=== PATIENT | male | born 1945 | race Caucasian/White ===

== ENCOUNTER 2019-10-11 07:08 | Day surgery (SDC) | payer MEDICARE, SELFPAY ==
[2019-10-10 10:19] VITALS: BMI 24.3
--- NOTE | 2019-10-11 05:50 | PM.OPSURHP ---
Providers/Chief Complaint Primary Care Provider: Judson Koehler MD Chief Complaint: M67.479 M20.21 History of Present Illness Munir Salcedo is a 74 year old male presenting with right foot pain. He endorses an arthritic joint that is stiff and painful when walking on his right great toe he also developed a soft tissue mass in July 2019 on the right foot consistent with ganglion cyst. States that that area is painful when standing, walking and wearing shoes and would like to have the soft tissue mass removed, he is also requesting a surgical solution for the arthritic changes at his right great toe. Patient takes [id number] NSAIDs and has decreased activity. He describes the nature of the pain is sharp stabbing as well as deep and arthritic in nature. Primary care provider: Dr. Koehler [place] [facility] [place] Systems Const: Denies: fever, chills or body aches Eyes: Denies: change in vision ENMT: Denies: throat pain Card: Denies: chest pain or palpitations Resp: Denies: shortness of breath GI: Denies: abdominal pain : Denies: flank pain Musc: Reports: extremity pain, joint swelling, joint stiffness and limited range of motion Skin/Breast: Denies: itching or redness Neuro: Reports: difficulty walking Psych: Denies: anxiety or depression Endo: Denies: excessive urination Michael/Lymph: Denies: easy bruising Medications/Allergies Home Medications Medication Instructions Recorded Confirmed Last Taken Type aspirin [Aspirin Low Dose] 81 mg PO DAILY 10/11/19 10/11/19 Unknown History terazosin 1 mg PO DAILY 10/11/19 10/11/19 Unknown History tizanidine mg 10/11/19 10/11/19 Unknown History Allergies Allergy/AdvReac Type Severity Reaction Status Date / Time No Known Allergies Allergy Unverified 10/02/19 07:34 PFSH PFSH: Statuses (acute, chronic, etc) shown below reflect problem list status as previously entered and may not be historically accurate Medical History (Updated 10/11/19 @ 05:59 by Valdez Kumar DPM) Heart murmur (Acute) Rupture of left biceps tendon (Acute) Surgical History (Updated 10/11/19 @ 06:02 by Valdez Kumar DPM) H/O hernia repair (Acute) H/O unilateral orchiectomy (Acute) History of colon resection (Acute) S/p reverse total shoulder arthroplasty (Acute) Social History (Updated 10/11/19 @ 06:00 by Valdez Kumar DPM) Smoking and tobacco status: never smoked Alcohol intake: current Alcohol intake frequency: holidays/special occasions only Substance/Drug Use: never Marital status: Current occupational status: employed Current occupation: Part-time employment Vital Signs Weight: Weight last 48 hrs Weight 170 lb Physical Exam Narrative: EXAM NARRATIVE: Patient is in no acute distress, conversant. PSYCH: Patient is alert and oriented to person, place and time. HEENT: PERRL. Clear sclera. No rhinitis. Moist mucous membranes of oral cavity. CARDIOVASCULAR: S1, S2, normal rhythm, did not appreciate S3 or S4 heart sounds. Dorsalis pedis and posterior tibial arteries palpable +2. Capillary refill time less than 3 seconds to the distal hallux bilaterally. Calf is supple and nontender proximally and distally. No pedal edema appreciated. Pedal hair growth present. LUNGS: Clear to auscltation, no use of acessory muscles, no crackles or wheezes. LYMPHATIC: No lymphadenopathy. NEUROLOGICAL: Epicritic and protopathic sensations grossly intact to the lower extremities. +2 Achilles tendon reflex noted bilaterally. Negative Tinel sign upon percussion of lower extremity nerves. DERMATOLOGICAL: Lower extremity skin is well-hydrated, normal texture and turgor. There are no open sores or lesions noted to the lower extremities. No erythema or ecchymosis present to the bilateral legs and feet. Dystrophic right great toenail with significant thickening, discoloration and subungual debris present. MUSCULOSKELETAL: Soft tissue mass at the dorsal right first metatarsal head measures 2.5 cm x 2.5 cm x 1.5 cm transilluminates is fluid-filled. Decreased range of motion at right first metatarsal phalangeal joint, 20 degrees of dorsiflexion appreciated, 15 degrees of plantarflexion with crepitus. Palpable osseous prominence at the dorsal and medial aspect of the right first metatarsal head. Tenderness with range of motion of right first metatarsal head. Muscle strength is 5 out of 5 in all 3 cardinal planes. Ankle joint dorsiflexion 5 degrees beyond neutral bilaterally. There is a mild hallux valgus deformity noted bilaterally. Hammertoe deformities 2 through 5 bilaterally. Pes planus foot type noted bilaterally. Patient does not have pain to palpation at the digital deformities at this time his only area of pain and concern is his right first metatarsal phalangeal joint and soft tissue mass. A&P Assessment and plan (1) Ganglion cyst of right foot: Status: Acute Code(s): M67.471 - Ganglion, right ankle and foot (2) Hallux rigidus, right foot: Status: Acute Code(s): M20.21 - Hallux rigidus, right foot Patient examined and evaluated, findings and treatment options discussed with patient at length. Patient does not have pain at the other pedal deformities noted in physical exam. Primary focus of the visit was his ganglionic cyst and hallux rigidus right foot. Discussed radiographic findings of joint space narrowing, subchondral sclerosis, widening of first metatarsal head and phalanx base as well as significant enthesophytes at the dorsal right first metatarsal head with clinical decreased range of motion and tenderness. Recommended excision of ganglion cyst along with cheilectomy right first metatarsal phalangeal joint. Risks include pain, bleeding, numbness, infection, failure to alleviate pain, bruising, swelling, recurrence of soft tissue mass and recurrence of osseous prominence. Also need for further surgical intervention. He wishes to proceed. He will get an updated H&P with his primary care provider and wishes to proceed October 11, 2019 will be outpatient under MAC anesthesia. Coding Level of Care Code Acute Manager Administrative for hSer Paz Diagnoses Ganglion cyst of right foot M67.471 Hallux rigidus, right foot M20.21
[2019-10-11 07:30] VITALS: BP 126/68; PULSE 77; RESP 18; TEMP 36.8; O2SAT 95
[2019-10-11] MEDS: sodium chloride 0.9% 1,000 ML 30 ML IV (07:50)
--- NOTE | 2019-10-11 08:01 | ANES.PREANES ---
Pre-Anesthetic Assessment Pre-Anesthetic Assessment: Height/Weight: Height 1.78 m Weight 77.111 kg Temp Pulse Resp BP Pulse Ox 98.3 F 77 18 126/68 95 10/11/19 07:30 10/11/19 07:30 10/11/19 07:30 10/11/19 07:30 10/11/19 07:30 Preop Diagnosis: Hallux rigidus right foot. Ganglion cyst right foot. Proposed Procedure: Operation Date: 10/11/19 08:50 Proposed Procedures p 28659 Ganglion cyst excision right foot 43936 cheilectomy right foot M67.479 M20.21(Right) - Valdez Kumar DPM s Cheilectomy(Right) - Valdez Kumar DPM Last intake: Intake Last Liquid Date 10/10/19 Last Liquid Time 22:00 Last Solid Date 10/10/19 Last Solid Time 19:00 Social: Social History: Alcohol (occ) and No tobacco Exam: Pre-Anes Outpt Exam: alert, oriented x 3, clear to auscultation bilaterally and regular rate & rhythm Airway: Submandibular: WNL Cervical ROM: WNL MP: 2 Dentition: Full History/ROS: No significant history except as noted Pulmonary: Pulmonary: None reported CV/HEM: CV/HEM: None reported : : None reported Hepatic: Hepatic: None reported GI: GI: None reported Metabolic: Metabolic: None reported Musc/skel: Musc/skel: OA/DJD Neuropsych: Neuropsych: None reported Anesthetic Plan: ASA status: II Anesthesia: Anesthesia Evaluation and MAC Risk of > 500 ml blood loss (7ml/kg in children): No Meds/Allergies Current Medications: Current Medications Generic Name Dose Route Start Last Admin Trade Name Freq PRN Reason Stop Dose Admin Sodium Chloride 1,000 mls @ 30 ml s/hr 10/11/19 07:30 10/11/19 07:50 Sodium Chloride 0.9% IV 10/12/19 07:29 30 mls/hr .Q24H NATY Administration PFSH Anesthesia PFSH: Medical History Heart murmur (Acute) Rupture of left biceps tendon (Acute) Surgical History H/O hernia repair (Acute) H/O unilateral orchiectomy (Acute) History of colon resection (Acute) S/p reverse total shoulder arthroplasty (Acute) Social History Smoking and tobacco status: never smoked Alcohol intake: current Alcohol intake frequency: holidays/special occasions only Marital status: Current occupational status: employed Current occupation: Part-time employment Data Anesthesia Cardiac Studies: No Data to Display
[2019-10-11 09:46] VITALS: BP 126/70; PULSE 60; RESP 16; TEMP 36.3; O2SAT 96
[2019-10-11 10:05] VITALS: BP 122/64; PULSE 56; RESP 18; O2SAT 94
--- NOTE | 2019-10-11 10:08 | PM.OP ---
Operative Report Date of procedure: 10/11/19 Pre-op Diagnosis: Hallux rigidus right foot. Ganglion cyst right foot. Post-op diagnosis: same Post-op Findings: Soft tissue mass gelatinous fluid filled with viscous fluid consistent with ganglion cyst right foot. Bony hypertrophy and loose chondral bodies at right first metatarsal phalangeal joint with decreased range of motion consistent with hallux rigidus. Procedure Done: 1. Cheilectomy right first metatarsal phalangeal joint. 2. Excision of soft tissue mass consistent with ganglion cyst right foot Implants: No implants Specimens removed/disposition: Soft tissue mass right foot sent to pathology for review. Pathology: other Pathology: Soft tissue mass consistent with ganglion cyst right foot sent to pathology Surgeon: Valdez Kumar D.P.M. [employer] Operator: Jennifer Anesthesia: MAC and Local (Operative [place] block right foot consisting of 30 cc of 0.5's Marcaine plain. Postoperatively Exparel 20 cc per oracle fusion middleware developer recommendation at perioperative site infiltrated throughout subcutaneous tissue.) Estimated blood loss: 2 mL Tourniquet time: 30 minutes IV fluids: None Urine output: None Complications: No complications Findings: Soft tissue mass consistent with ganglion cyst right foot. Hallux rigidus right foot Condition: stable Disposition: PACU Brief History: Patient is a pleasant 74-year-old male with a soft tissue mass causing pain and irritation when standing as well as when wearing shoes. Soft tissue mass is located at his right foot dorsal aspect of first metatarsal phalangeal joint is consistently getting larger. He would like to have it removed. Also has hallux rigidus with joint space narrowing widening and subchondral sclerosis with loose bodies at right first metatarsal phalangeal joint. Recommended cheilectomy and excision of ganglion cyst with risks including but not limited to pain, bleeding, numbness, infection, bruising, swelling, surgical site dehiscence, recurrence of enthesophytes and chondral bodies, recurrence of ganglion cyst and need for further surgical intervention. Procedure: Under mild sedation the patient was brought to the operating room and placed on the operating table in supine position. A timeout was performed. Anesthesia was then administered by the anesthesia service. Local anesthesia was injected by myself as above. A well-padded pneumatic tourniquet was applied to the right ankle. Right lower extremity was then scrubbed, prepped and draped utilizing normal aseptic technique. Right foot was then examined a weighted with an Esmarch bandage and a tourniquet was inflated to 250 mmHg. Attention was directed to the dorsal medial aspect of the right first metatarsal phalangeal joint where a #15 blade was utilized to perform a linear longitudinal incision medial and parallel to the extensor hallucis longus tendon. Incision was performed through skin and dissection carried down through subcutaneous tissue utilizing a combination of blunt and sharp technique. Care was taken to retract and preserve neurovascular tendinous structures. Bleeders were ligated and cauterized as necessary. Soft tissue mass was encountered this was gelatinous fluid-filled and well encapsulated without integration to surrounding neurovascular structures it was adhered to the extensor hallucis longus tendon this was sharply and bluntly dissected out through tissue planes keeping the mass intact and excised in total identifying the stalk at the dorsal medial aspect of the extensor hallucis longus tendon proximal to the first metatarsal phalangeal joint. Soft tissue mass was sent to pathology for review. Stalk was identified and constricted with a Vicryl hand type. Incision site was flushed with saline solution and no remaining abnormal tissue or mass appreciated. At this time a new 15 blade was utilized to perform a periosteal and capsular incision this was linear nature over the first metatarsal phalangeal joint dorsal medial aspect and the head of the first metatarsal and base of the proximal phalanx were freed from the soft tissue attachments. Excessive bony hypertrophy and loose chondral bodies were appreciated these were sharply debrided sagittal saw was utilized to resect the dorsum and hypertrophied overgrowth at the head of the first metatarsal as well as medial eminence a rondure was utilized to recontour the base of the phalanx which had a dorsal flare from bossing. All anatomy to the first metatarsal head and base of the proximal phalanx was restored to normal contour no remaining osseous bodies or loose chondral fights were appreciated. Incision site was flushed with copious amounts of sterile saline solution. Capsular periosteal structures closed with 3-0 Vicryl. Subcutaneous tissue closed with 4-0 Vicryl. Skin closed with 4-0 nylon. Incision site was dressed with Adaptic, sterile 4 x 4's, Kerlix and Marshall wrap. Postop shoe was applied. Tourniquet was deflated and a prompt hyperemic response was noted to the distal digits of the right foot. Patient tolerated the procedure well and was transferred to the PACU with vital signs stable and vascular status intact. Following a period of postoperative monitoring he will be discharged home. He is provided my cell phone number and postoperative instructions and discharge paperwork is to contact me with any postoperative questions or concerns.
== END 2019-10-11 10:30 | disposition home or self-care (01) ==
PROVIDERS: Family Provider Family Medicine; PCP Family Medicine; Visit Provider Podiatrist Foot & Ankle Surgery
PROC: (CPT 28090; principal; 2019-10-11 08:50)
PROC: (CPT 28289; 2019-10-11 08:50)
DX: M20.21 Hallux rigidus, right foot (principal); M67.471 Ganglion, right ankle and foot; M19.90 Unspecified osteoarthritis, unspecified site; Z79.82 Long term (current) use of aspirin; G47.33 Obstructive sleep apnea (adult) (pediatric)
CPT/HCPCS: 28090; 28289; 12345; 88307; 88309; 96365; C9290; J0690; J2704; J3010; J3490; J7030

== ENCOUNTER → 2019-12-23 10:45 | Outpatient (BNVA) | payer MEDICARE, SELFPAY | PROVIDERS: Family Provider Family Medicine; PCP Family Medicine; Visit Provider Specialist | DX: Z98.890 Other specified postprocedural states (principal); Z96.611 Presence of right artificial shoulder joint | CPT/HCPCS: 73030 ==

== ENCOUNTER 2020-07-05 18:08 | Emergency (ER) | payer MEDICARE, MEDICAID, SELFPAY ==
[2020-07-05 18:13] VITALS: BP 112/67; PULSE 90; RESP 18; TEMP 36.7; O2SAT 93; BMI 25.0
--- NOTE | 2020-07-05 18:26 | XRR_ITS ---
PROCEDURE INFORMATION: Exam: XR Chest, 1 View Exam date and time: 07/05/2020 6:27 PM Age: 75 years old Clinical indication: Cough and fever TECHNIQUE: Imaging protocol: XR of the chest Views: 1 view. COMPARISON: No relevant prior studies available. FINDINGS: Lungs: Patchy airspace disease in the left lower lobe suspicious for mild pneumonia. Pleural space: No pleural effusion. No pneumothorax. Heart/Mediastinum: The cardiac silhouette and mediastinal contours are unremarkable. Bones/joints: Patient has had a previous right reverse shoulder arthroplasty. Moderate degenerative changes at the left shoulder. Patient has had a previous left rotator cuff repair. Multilevel degenerative changes of varying severity in the visualized spine. Bones are diffusely osteopenic. XR/XR chest 1V portable [id number] IMPRESSION: 1. Patchy airspace disease in the left lower lobe suspicious for mild pneumonia. Recommend followup chest x-ray to ensure resolution. 2. Incidental/nonacute findings are listed in the report.
--- NOTE | 2020-07-05 18:29 | ED_ITS ---
HPI - SOB/Dyspnea General: Chief Complaint: Shortness of Breath/Dyspnea Stated Complaint: referral from [facility] Time Seen by Provider: 07/05/20 18:22 Source: patient Mode of arrival: ambulatory Limitations: no limitations History of Present Illness: HPI Narrative: 75-year-old male states been having cough congestion fever over the last 4 to 5 days. Patient states that he had a Covid swab on Monday but has not gotten the results back yet. He states that his cough worsened today. Patient here is in no distress mom in the room and has a pulse ox of 96% on room air. He had no vomiting or diarrhea. He denies any chest pain. Denies any worsening or improving factors. Associated symptoms: Deny abdominal pain, chest pain, fever(s), nausea or vomiting Review of Systems Const: Denies: fever(s), chills, body aches or change in appetite Eyes: Denies: blurry vision or eye discomfort ENMT: Denies: throat pain or dental pain Card: Denies: chest pain Resp: Reports: dyspnea and non-productive cough GI: Denies: abdominal pain, nausea, vomiting or diarrhea : Denies: dysuria Musc: Denies: neck pain or back pain Skin/Breast: Denies: rash Neuro: Denies: headache(s) Psych: Denies: depression Michael/Lymph: Denies: easy bruising All/Imm: Denies: urticaria PFSH ED PFSH: Medical History Heart murmur Hernia of testicle Rotator cuff arthropathy of right shoulder Rupture of left biceps tendon Surgical History H/O hernia repair H/O unilateral orchiectomy History of colon resection S/p reverse total shoulder arthroplasty Family History Denies family history of Diabetes CAD (coronary artery disease) Clotting disorder Dementia Hyperlipidemia Psychiatric illness Chronic kidney disease (CKD) Suicide Anesthesia complication Bleeding disorder Family history of premature coronary artery disease Lung disease Cancer Hypertension Stroke Social History Smoking and tobacco status: never smoked Alcohol intake: current Alcohol intake frequency: holidays/special occasions only Marital status: Current occupational status: employed Current occupation: Part-time employment Physical Exam Const: COMMON NORMALS: no acute distress, patient oriented x3 and healthy appearing HENMT: COMMON NORMALS: normocephalic and atraumatic HEAD & SCALP: normocephalic and atraumatic Eye: COMMON NORMALS: Equal, round and reactive pupils present and EOMs intact bilaterally PUPIL: Yes Equal, round and reactive pupils present Neck/C-Spine: COMMON NORMALS: full ROM and supple Chest: COMMONS NORMALS: normal inspection of the chest and normal palpation of entire chest wall Resp: COMMON NORMALS: normal respiratory effort, No retractions, No use of accessory muscles and clear to auscultation bilaterally AUSCULTATION: clear to auscultation bilaterally Cardio: COMMON NORMALS: regular rate, regular rhythm and No murmurs present (Cardio) RATE: regular rate RHYTHM: regular rhythm GI: COMMON NORMALS: Normal to inspection, nondistended, normoactive bowel sounds present, Soft to palpation, non-tender and no masses PALPATION: Yes Soft to palpation Extremity: COMMON NORMALS: normal to inspection and full ROM Neuro: COMMON NORMALS: patient oriented x3, moves all extremities and no focal motor deficits Psych: COMMON NORMALS: mental status grossly normal, Normal thought process present and cooperative THOUGHT PROCESS: Normal thought process present Skin: COMMON NORMALS: no rashes or lesions noted and no wounds GENERAL SKIN EXAM: no rashes or lesions noted Course Vital Signs: Vital signs: Vital Signs Temperature 98.1 F 07/05/20 18:13 Pulse Rate 90 07/05/20 18:13 Respiratory Rate 18 07/05/20 18:13 Blood Pressure 112/67 07/05/20 18:13 Pulse Oximetry 93 07/05/20 18:13 MDM - SOB/Dyspnea MDM Narrative: Medical decision making narrative: Patient presents here with cough congestion and suspected Covid. Patient still pending his previous swab. He is well-appearing here and in no distress and pulse ox is been 93 to 95% on room air. X-ray shows no pneumonia. We will give him Decadron along with albuterol for home. He is to follow-up with his PCP in 3 to 5 days and return if worsening. Imaging Data^: CXR: My impression: No acute abnormality Discharge Plan Discharge Patient Disposition: Home Clinical Impression: Suspected 2019-nCoV infection Condition: Stable Prescriptions: New albuterol sulfate 90 mcg/actuation HFA aerosol inhaler 2 inh INHALATION Q6H PRN (Reason: shortness of breath or wheezing) Qty: 8 RF: 0 No Action tizanidine 2 mg tablet 2 mg PO DAILY RF: 0 terazosin 1 mg Capsule 1 mg PO DAILY RF: 0 aspirin [Aspirin Low Dose] 81 mg Tablet,Delayed Release (Dr/Ec) 81 mg PO DAILY RF: 0 Discharge Orders: Discharge Order (Routine); Ordered 07/05/20 Ordered By: Sylvester Navarro Referrals: Judson Koehler MD [Primary Care Provider] - 1-3 days Discharge Diet: Advance as tolerated Discharge Activity: Resume usual activity Patient Instructions: Upper Respiratory Infection (ED) Coding Level of Care Code ED Soaker Helper for Eseg Fwd Exam Comprehensive
[2020-07-05] MEDS: dexamethasone 10 mg/mL INJ IM (18:45)
[2020-07-05 18:49] VITALS: BP 109/67; PULSE 68; RESP 17; O2SAT 92
[2020-07-05 19:00] VITALS: PULSE 100; RESP 20; O2SAT 92
[2020-07-05] MEDS: albuterol 8 gm MDI 2 PUFF INHALATION (19:00)
[2020-07-05 19:38] VITALS: BP 123/61; PULSE 86; RESP 16; TEMP 36.7; O2SAT 93
--- NOTE | 2020-07-07 08:40 | DCPLANNER ---
manager talent management was asked to schedule a telehealth visit or a phone visit for patient with primary care physician, Dr. Koehler. manager talent management called [facility], spoke with Dr. Teresa nurse, was told that patients information would be reviewed with Dr. Koehler, nurse would call patient and check on patient and see how he is feeling. manager talent management was told that depending on how patient is feeling will have Dr. Koehler do a tele health or a phone visit with patient today. Patient does have a in office visit scheduled for later this week.
== END 2020-07-05 19:38 | disposition home or self-care (01) ==
PROVIDERS: Emergency Provider Emergency Medicine; PCP Family Medicine
DX: Z20.828 Contact with and (suspected) exposure to other viral communicable diseases (principal); Z79.82 Long term (current) use of aspirin
CPT/HCPCS: 12345; 71045; 94640; 96372; 99283; J1100; J3535

== ENCOUNTER 2020-07-10 08:38 | Inpatient (IN) | payer MEDICARE, MEDICAID, SELFPAY ==
[2020-07-10] VITALS (15 sets, daily range): BP systolic 86–134; BP diastolic 49–78; PULSE 60–92; RESP 14–22; TEMP 36.4–37.8; O2SAT 91–97; BMI 24.3
--- NOTE | 2020-07-10 08:47 | XR_ITS ---
WS: [id number] Portable AP upright chest, 07/10/2020 Clinical Data: Cough Comparison: Portable chest, 07/05/2020. Findings: The patient has developed dense opacity throughout the left lung and moderate opacity in th e right upper lobe. The heart is slightly enlarged. No nodules or masses are seen. There are no effus ions. The patient has had a right shoulder arthroplasty. Monitor leads are on the chest wall. XR/XR chest 1V portable [id number] Impression: 1. Development of dense opacities in the left lung and right upper lobe consist ent with worsening pneumonia. 2. Cardiomegaly.
--- NOTE | 2020-07-10 08:47 | ECG_ITS ---
[facility] Test Date: 2020-07-10 Pat Name: Munir Salcedo Department: Room: Gender: Male Diversity Specialist: : [id number] Requested By: Maye Damian Order Number: [id number] Vance MD: Jory Damon M.D. Measurements Intervals [place] Rate: 85 P: 48 LA: 133 QRS: 69 QRSD: 106 T: 26 QT: 350 QTc: 417 Interpretive Statements SINUS RHYTHM WITH OCCASIONAL VENTRICULAR PREMATURE COMPLEXES VOLTAGE CRITERIA FOR LVH [MEETS CRITERIA IN ONE OF: R(aVL), S(V1), R(V5), R(V5/V6)+S(V1)] NONSPECIFIC ST & T-WAVE ABNORMALITY Compared to ECG 06/22/2018 08:32:39 Ventricular premature complex(es) now present Left ventricular hypertrophy now present T-wave abnormality now present Sinus bradycardia no longer present Electronically Signed On 07-10-2020 20:29:25 CDT by Jory Damon M.D. [email or web address]
--- NOTE | 2020-07-10 08:49 | ED_ITS ---
HPI - General Adult General: Chief complaint: COVID symptoms Stated complaint: COVID POSITIVE/ WEAK/ COUGH Time Seen by Provider: 07/10/20 08:39 Source: patient and EMS Mode of arrival: EMS Limitations: no limitations History of Present Illness: HPI narrative: Mr. Salcedo is a 75-year-old male comes in complaining of progressive worsening of his weakness and generalized fatigue and malaise. Patient has had the COVID-19 virus and is been sick with it for almost a week and a half. Not aware of any fevers. States his predominant symptom is that of just continued diarrhea, generalized weakness and fatigue. Patient states he has been released by the health department but he continues to feel weak and tired because of this he comes into the hospital for evaluation. He denies any immunosuppressive medications or significant generalized health problems. He states any type of exertion or activity makes his symptoms worse and rest seems to make them better. Associated symptoms: Reports dyspnea and malaise; Deny chest pain, confusion, diaphoresis, headache(s), rash, palpitations, syn cope or vomiting Review of Systems Const: Reports: fever(s), chills, body aches, fatigue and malaise; Denies: diaphoresis Eyes: Denies: change in vision, blurry vision, photophobia, eye discomfort, eye discharge, eye redness or yellow eyes ENMT: Denies: throat pain, odynophagia, hoarseness, swelling of lips/tongue, ear or mastoid pain, ear discharge, change in hearing or nasal discharge Card: Denies: chest pain, palpitations, irregular heart rhythm, edema, lightheadedness, syncope, pre-syncope, dyspnea on exertion or orthopnea Resp: Reports: dyspnea and non-productive cough; Denies: productive cough, wheezing, hemoptysis or chest congestion GI: Reports: diarrhea; Denies: abdominal pain, vomiting, hematemesis, coffee ground emesis, heartburn, constipation, GI cramping, hematochezia or melena : Denies: flank pain, dysuria, urinary frequency, urinary urgency or hematuria Musc: Denies: neck pain, back pain, extremity pain, extremity swelling, joint pain, joint swelling, joint redness, joint warmth or joint stiffness Skin/Breast: Denies: rash, pruritus, erythema, skin pain or skin tenderness Neuro: Denies: headache(s), numbness in extremities, weakness in extremities, sensory changes, lack of coordination, difficulty walking, dizziness, vertigo, confusion, Slurred speech present or seizure-like activity Michael/Lymph: Denies: easy bruising, easy bleeding, petechiae, purpura or enlarged lymph nodes All/Imm: Denies: urticaria, throat swelling, tongue swelling, facial swelling or acute wheezing PFSH ED PFSH: Medical History Heart murmur Hernia of testicle Rotator cuff arthropathy of right shoulder Rupture of left biceps tendon Surgical History H/O hernia repair H/O unilateral orchiectomy History of colon resection S/p reverse total shoulder arthroplasty Family History Denies family history of Diabetes CAD (coronary artery disease) Clotting disorder Dementia Hyperlipidemia Psychiatric illness Chronic kidney disease (CKD) Suicide Anesthesia complication Bleeding disorder Family history of premature coronary artery disease Lung disease Cancer Hypertension Stroke Social History Smoking and tobacco status: never smoked Alcohol intake: current Alcohol intake frequency: holidays/special occasions only Marital status: Current occupational status: employed Current occupation: Part-time employment Physical Exam Const: COMMON NORMALS: no acute distress, patient oriented x3, no limitations and alert GENERAL APPEARANCE: cooperative HENMT: COMMON NORMALS: normocephalic, atraumatic, external ears normal, EAC's normal and Normal external nose present HEAD & SCALP: normal to inspection, normocephalic and atraumatic FACE & SINUS: normal facial exam and face symmetric NOSE: Normal external nose present and Normal nares present EXTERNAL EAR: Yes external ears normal EXTERNAL AUDITORY CANAL: EAC's normal MOUTH: Normal oral and palatal mucosa present, lip normal and tongue normal Eye: COMMON NORMALS: Equal, round and reactive pupils present and conjunctivae normal GENERAL EYE: appearance normal, both eyes and all related structures ALIGNMENT: Yes alignment normal PERIORBITAL: periorbital findings normal EYELID: eyelids normal CONJUNCTIVA: Yes conjunctivae normal SCLERA: sclerae normal PUPIL: Yes Equal, round and reactive pupils present Neck/C-Spine: COMMON NORMALS: full ROM, no lymphadenopathy, supple, no meningeal signs and no JVD GENERAL: Yes normal visual inspection and Yes trachea midline Chest: COMMONS NORMALS: normal inspection of the chest and normal palpation of entire chest wall Resp: COMMON NORMALS: normal respiratory effort, No retractions and No use of accessory muscles EFFORT & INSPECTION: Yes able to speak in complete sentences and Yes symmetric chest movement AUSCULTATION: rales, rhonchi and no wheezes Cardio: COMMON NORMALS: no JVD, regular rate, regular rhythm, S1 normal heart sound present and S2 normal heart sound present RATE: regular rate RHYTHM: regular rhythm HEART SOUNDS: S1 normal heart sound present, S2 normal heart sound present, no click, no gallops, no murmurs and no rubs GI: COMMON NORMALS: Soft to palpation and No hepatosplenomegaly present PALPATION: Yes Soft to palpation, No Tenderness to palpation present (GI), No Guarding due to palpation present (GI), No Rigid due to palpation, Yes No hepatosplenomegaly present, No Hernia present, No Palpable mass present and No Pulsatile mass present : COMMON NORMALS: Yes no CVA tenderness BLADDER/KIDNEY EXAM: Yes no CVA tenderness Back/Pelvis: COMMON NORMALS: no CVA tenderness, thoracic and lumbar spine normal to inspection, no thoracic nor lumbar tenderness and thoraco-lumbar ROM normal Extremity: COMMON NORMALS: normal to inspection, full ROM, capillary refill normal, no joint enlargement, no clubbing, cyanosis or edema and no calf tenderness Neuro: COMMON NORMALS: patient oriented x3, CN's II-XII intact bilaterally, moves all extremities, no focal motor deficits and no sensory deficits noted SENSORIUM/ORIENTATION: Yes alert MENINGEAL SIGNS: Yes no meningeal signs SPEECH: speech normal Psych: COMMON NORMALS: mental status grossly normal, Normal thought process present, cooperative, normal affect, speech normal and activity/motor behavior normal SPEECH: Yes normal speech THOUGHT PROCESS: Normal thought process present Skin: COMMON NORMALS: no rashes or lesions noted, turgor normal, no jaundice, no petechiae and no mottling GENERAL SKIN EXAM: no rashes or lesions noted and turgor normal Course Vital Signs: Vital signs: Vital Signs Temperature 100.0 F H 07/10/20 09:56 Pulse Rate 73 07/10/20 11:59 Respiratory Rate 22 H 07/10/20 11:59 Blood Pressure 86/73 07/10/20 11:59 Pulse Oximetry 97 07/10/20 11:59 MDM - General Adult MDM Narrative: Medical decision making narrative: Case was reviewed with Dr. Koehler he agrees to meet the patient for viral pneumonitis, hypoxia dehydration. Lab Data: Attestation: I reviewed the patient's lab results. Labs: Lab Results 07/10/20 07/10/20 07/10/20 Range/Units 08:25 08:25 08:25 WBC 7.2 (4.0-10.0) 10^3/ uL RBC 4.74 (4.1-5.3) 10^6/u L Hgb 13.9 (11.7-16.6) g/dL Hct 41.4 L (42.0-52.0) % MCV 87.3 (80-94) fL MCH 29.3 (28.0-34.0) pg MCHC 33.6 (30.0-36.0) g/dL RDW 12.6 (12.1-15.1) % Plt Count 487 H (130-400) 10^3/c mm MPV 10.1 (7.4-10.4) fL Neut % (Auto) 83.6 % Lymph % (Auto) 9.6 % [place] % (Auto) 4.0 % Eos % (Auto) 2.1 % Baso % (Auto) 0.1 % Neut # (Auto) 6.04 (1.8-7.7) 10^3/u L Lymph # (Auto) 0.7 L (0.8-4.8) 10^3/u L [place] # (Auto) 0.3 (0.2-0.9) 10^3/u L Eos # (Auto) 0.2 (0.0-0.8) 10^3/u L Baso # (Auto) 0.0 (0.0-0.1) 10^3/u L Nucleated RBC % (a uto) 0 % Nucleated RBCs # 0.0 /100WBC PT 17.30 H (12.1-14.9) SECO NDS INR 1.37 H (0.8-1.2) Fibrinogen 1170 H (174-498) mg/dL D-Dimer 4.46 H (0-0.59) ug/mIFE U Specimen Type Sample Site ABG pH (7.35-7.45) ABG pCO2 (35-45) mmHg ABG pO2 (80.0-100.0) mmH g ABG HCO3 (22-26) mmol/L ABG Base Excess (-2.0-2.0) mmol/ L Rodriguez Test Hematocrit (42-52) % O2 Delivery Device FiO2 % Bottle Carrier ID Sodium 132 L (136-145) mmol/L Potassium 3.4 L (3.5-5.1) mmol/L Chloride 93 L (98-107) mmol/L Carbon Dioxide 25 (22-29) mmol/L Anion Gap 17.4 (5-19) BUN 23 (8-23) mg/dL Creatinine 0.8 (0.7-1.2) mg/dL GFR Calculation Not Reportable Glucose 131 H (65-115) mg/dL Calculated Osmolal ity 279 L (285-295) mOsm/k g Lactic Acid (0.5-2.2) mmol/L Calcium 8.6 (8.5-10.5) mg/dL Magnesium 2.9 H (1.7-2.3) mg/dL Total Bilirubin 1.3 H (0.15-1.2) mg/dL AST 45 H (0-40) U/L ALT 49 H (0-41) U/L Alkaline Phosphata se 78 (40-130) IU/L Lactate Dehydrogen ase 390 H (135-225) U/L Creatine Kinase 39 (39-308) U/L Troponin T Gen 5 n g/L (0-15) ng/L C-Reactive Protein 243.6 H (0.0-4.9) mg/L Total Protein 7.1 (6.6-8.7) g/dL Albumin 3.6 (3.5-5.2) g/dL Globulin 3.5 (1.3-4.6) g/dL Procalcitonin 1.05 H (0-0.5) ng/mL 07/10/20 07/10/20 07/10/20 Range/Units 08:25 08:25 09:00 WBC (4.0-10.0) 10^3/ uL RBC (4.1-5.3) 10^6/u L Hgb (11.7-16.6) g/dL Hct (42.0-52.0) % MCV (80-94) fL MCH (28.0-34.0) pg MCHC (30.0-36.0) g/dL RDW (12.1-15.1) % Plt Count (130-400) 10^3/c mm MPV (7.4-10.4) fL Neut % (Auto) % Lymph % (Auto) % [place] % (Auto) % Eos % (Auto) % Baso % (Auto) % Neut # (Auto) (1.8-7.7) 10^3/u L Lymph # (Auto) (0.8-4.8) 10^3/u L [place] # (Auto) (0.2-0.9) 10^3/u L Eos # (Auto) (0.0-0.8) 10^3/u L Baso # (Auto) (0.0-0.1) 10^3/u L Nucleated RBC % (a uto) % Nucleated RBCs # /100WBC PT (12.1-14.9) SECO NDS INR (0.8-1.2) Fibrinogen (174-498) mg/dL D-Dimer (0-0.59) ug/mIFE U Specimen Type Arterial Sample Site Radial, left ABG pH 7.49 H (7.35-7.45) ABG pCO2 32.5 L (35-45) mmHg ABG pO2 52.7 L (80.0-100.0) mmH g ABG HCO3 24.8 (22-26) mmol/L ABG Base Excess 1.9 (-2.0-2.0) mmol/ L Rodriguez Test Pos Hematocrit 39.3 L (42-52) % O2 Delivery Device Room air FiO2 21.0 % Bottle Carrier ID Ed Sodium (136-145) mmol/L Potassium (3.5-5.1) mmol/L Chloride (98-107) mmol/L Carbon Dioxide (22-29) mmol/L Anion Gap (5-19) BUN (8-23) mg/dL Creatinine (0.7-1.2) mg/dL GFR Calculation Glucose (65-115) mg/dL Calculated Osmolal ity (285-295) mOsm/k g Lactic Acid 1.3 (0.5-2.2) mmol/L Calcium (8.5-10.5) mg/dL Magnesium (1.7-2.3) mg/dL Total Bilirubin (0.15-1.2) mg/dL AST (0-40) U/L ALT (0-41) U/L Alkaline Phosphata se (40-130) IU/L Lactate Dehydrogen ase (135-225) U/L Creatine Kinase (39-308) U/L Troponin T Gen 5 n g/L 12 (0-15) ng/L C-Reactive Protein (0.0-4.9) mg/L Total Protein (6.6-8.7) g/dL Albumin (3.5-5.2) g/dL Globulin (1.3-4.6) g/dL Procalcitonin (0-0.5) ng/mL Imaging Data^: CXR: Attestation: I personally reviewed and interpreted this imaging study as follows: My impression: Viral pneumonitis with probable left upper lobe focal infiltrate Radiologist's impression: [place] [address] CT Scan Report Signed Patient: Ranjan Salcedo #: [id number] : 7Acct#:[id number] Age/Sex: 75 / MADM Date: 07/10/20 Loc: [facility]/Bed: Attending Dr: Ordering Provider/Ordering MD: Maye Phillips DO Date of Service: 07/10/20 Procedure(s): CT angio chest PE protcl [id number] Accession Number(s): [id number] Report Number: [id number] PROCEDURE INFORMATION: Exam: CT Angiography Chest With Contrast Exam date and time: 07/10/2020 10:50 AM Age: 75 years old Clinical indication: Cough and fever; Prior surgery; Surgery date: 6+ months; Surgery type: Shoulder; Patient HX: Covid+ w fever, weakness, cough, elev d-dimer; Additional info: Dyspnea, positive d-dimer TECHNIQUE: Imaging protocol: Computed tomographic angiography of the chest with intravenous contrast. 3D rendering (Not supervised by radiologist): MIP and/or 3D reconstructed images were created by the technologist. Radiation optimization: All CT scans at this facility use at least one of these dose optimization techniques: automated exposure control; mA and/or kV adjustment per patient size (includes targeted exams where dose is matched to clinical indication); or iterative reconstruction. Contrast material: OMNI 350; Contrast volume: 78 ml; Contrast route: INTRAVENOUS (IV); COMPARISON: CR XR chest 1V portable [id number] 07/10/2020 8:49 AM RADIATION DOSE METRICS: Total DLP (mGy-cm): 570.88 FINDINGS: Pulmonary arteries: Normal. No pulmonary emboli. Aorta: Unremarkable. No aortic aneurysm. No aortic dissection. Lungs: Extensive bilateral interstitial and alveolar pulmonary infiltrates are present. This is consistent with a viral pneumonia. Pleural space: Unremarkable. No pneumothorax. No pleural effusion. Heart: There is calcification of the coronary arteries.. No cardiomegaly. No pericardial effusion. Lymph nodes: Small benign calcified mediastinal lymph nodes are present.. No enlarged lymph nodes. Liver: Nonenhancing benign cysts are present in the liver. Bones/joints: Degenerative changes are present in the spine with sclerosis and osteophyte formation. Soft tissues: Unremarkable. CT/CT angio chest PE protcl [id number] IMPRESSION: 1. No evidence of pulmonary embolus or aortic dissection. 2. Prominent extensive bilateral interstitial and alveolar pulmonary infiltrates consistent with viral pneumonia. 3. Coronary artery disease. Radiation Dose CTDIVOL = (mGy): DLP = 570.88 (mGy-cm) Dictated By:Dylan Quezada Signed By:Dylan QuezadaSignidris Date/Time:07/10/20 1240 DD/ 1239 EKG Data^: EKG 1: Attestation: I personally reviewed and interpreted this EKG as follows: EKG interpretation date: 07/10/20 EKG interpretation time: 08:56 Interpretation: Normal sinus rhythm at 85 beats a minute, normal axis, LVH, nonspecific ST and T wave changes, no blocks, normal intervals, significant wandering baseline artifact Computer generated interpretation: Chest X-Ray 07/10/20 08:47 Impression: 1. Development of dense opacities in the left lung and right upper lobe consistent with worsening pneumonia. 2. Cardiomegaly. Chest CTA 07/10/20 09:25 IMPRESSION: 1. No evidence of pulmonary embolus or aortic dissection. 2. Prominent extensive bilateral interstitial and alveolar pulmonary infiltrates consistent with viral pneumonia. 3. Coronary artery disease. Radiation Dose CTDIVOL = (mGy): DLP = 570.88 (mGy-cm) Discharge Plan Discharge Patient Disposition: Admitted As Inpatient Clinical Impression: Viral pneumonitis Condition: Stable Prescriptions: No Action tizanidine 2 mg tablet 2 mg PO DAILY RF: 0 terazosin 1 mg Capsule 1 mg PO DAILY RF: 0 aspirin [Aspirin Low Dose] 81 mg Tablet,Delayed Release (Dr/Ec) 81 mg PO DAILY RF: 0 albuterol sulfate 90 mcg/actuation HFA aerosol inhaler 2 inh INHALATION Q6H PRN (Reason: shortness of breath or wheezing) Qty: 8 RF: 0 Referrals: Judson Koehler MD [Primary Care Provider] - Coding Level of Care Code ED Boring Machine Set Up Operator Jig for Chg Fwd Exam Comprehensive
[2020-07-10 09:00] LABS: Basophils % 0.1 %; Eosinophils # 0.2 10^3/uL (0.0-0.8); Eosinophils % 2.1 %; Hematocrit 41.4 % (42.0-52.0); Hemoglobin 13.9 g/dL (11.7-16.6); Lymphocytes # 0.7 10^3/uL (0.8-4.8); Lymphocytes % 9.6 %; Mean Corpuscular HGB Conc 33.6 g/dL (30.0-36.0); Mean Corpuscular Hemoglobin 29.3 pg (28.0-34.0); Mean Corpuscular Volume 87.3 fL (80-94); Mean Platelet Volume 10.1 fL (7.4-10.4); Monocytes # 0.3 10^3/uL (0.2-0.9); Neutrophils # 6.04 10^3/uL (1.8-7.7); Neutrophils % 83.6 %; Nucleated Red Blood Cells % 0 %; Platelet Count 487 10^3/cmm (130-400); Red Blood Count 4.74 10^6/uL (4.1-5.3); Red Cell Distribution Width 12.6 % (12.1-15.1); White Blood Count 7.2 10^3/uL (4.0-10.0)
[2020-07-10 09:09] LABS: ABG PCO2 32.5 mmHg (35-45); ABG PH Result 7.49 (7.35-7.45); Arterial Blood Gas Hematocrit 39.3 % (42-52); Base Excess ABG 1.9 mmol/L (-2.0-2.0); Blood Gas Allen Test Pos; Blood Gas Sample Type Arterial; HCO3 ABG 24.8 mmol/L (22-26); PO2 ABG 52.7 mmHg (80.0-100.0)
[2020-07-10 09:10] LABS: Blood Gas Operator Identificat ED; Blood Gas Sample Site Radial, left; Oxygen Device ROOM AIR
[2020-07-10] MEDS: dexamethasone 4 mg/mL INJ 10 MG IVP (09:10)
[2020-07-10] MEDS: sodium chloride 0.9% 1,000 ML 999 ML IV (09:10)
[2020-07-10] MEDS: ondansetron 2 mg/ML SDV 2 mL 4 MG IV (09:10)
[2020-07-10 09:12] LABS: INR 1.37 (0.8-1.2)
[2020-07-10 09:20] LABS: Lactic Sepsis W/Reflex 1.3 mmol/L (0.5-2.2)
[2020-07-10 09:21] LABS: Fibrinogen 1170 mg/dL (174-498); Troponin T (5th) Once 12 ng/L (0-15)
[2020-07-10 09:23] LABS: D Dimer 4.46 ug/mIFEU (0-0.59)
--- NOTE | 2020-07-10 09:25 | CTR_ITS ---
PROCEDURE INFORMATION: Exam: CT Angiography Chest With Contrast Exam date and time: 07/10/2020 10:50 AM Age: 75 years old Clinical indication: Cough and fever; Prior surgery; Surgery date: 6+ months; Surgery type: Shoulder; Patient HX: Covid+ w fever, weakness, cough, elev d-dimer; Additional info: Dyspnea, positive d-dimer TECHNIQUE: Imaging protocol: Computed tomographic angiography of the chest with intravenous contrast. 3D rendering (Not supervised by radiologist): MIP and/or 3D reconstructed images were created by the technologist. Radiation optimization: All CT scans at this facility use at least one of these dose optimization techniques: automated exposure control; mA and/or kV adjustment per patient size (includes targeted exams where dose is matched to clinical indication); or iterative reconstruction. Contrast material: OMNI 350; Contrast volume: 78 ml; Contrast route: INTRAVENOUS (IV); COMPARISON: CR XR chest 1V portable [id number] 07/10/2020 8:49 AM RADIATION DOSE METRICS: Total DLP (mGy-cm): 570.88 FINDINGS: Pulmonary arteries: Normal. No pulmonary emboli. Aorta: Unremarkable. No aortic aneurysm. No aortic dissection. Lungs: Extensive bilateral interstitial and alveolar pulmonary infiltrates are present. This is consistent with a viral pneumonia. Pleural space: Unremarkable. No pneumothorax. No pleural effusion. Heart: There is calcification of the coronary arteries.. No cardiomegaly. No pericardial effusion. Lymph nodes: Small benign calcified mediastinal lymph nodes are present.. No enlarged lymph nodes. Liver: Nonenhancing benign cysts are present in the liver. Bones/joints: Degenerative changes are present in the spine with sclerosis and osteophyte formation. Soft tissues: Unremarkable. CT/CT angio chest PE protcl [id number] IMPRESSION: 1. No evidence of pulmonary embolus or aortic dissection. 2. Prominent extensive bilateral interstitial and alveolar pulmonary infiltrates consistent with viral pneumonia. 3. Coronary artery disease. Radiation Dose CTDIVOL = (mGy): DLP = 570.88 (mGy-cm)
[2020-07-10 09:28] LABS: Procalcitonin 1.05 ng/mL (0-0.5)
[2020-07-10 09:39] LABS: Alanine Aminotransferase 49 U/L (0-41); Albumin Level 3.6 g/dL (3.5-5.2); Alkaline Phosphatase 78 IU/L (40-130); Anion Gap 17.4 (5-19); Aspartate Amino Transferase 45 U/L (0-40); Blood Urea Nitrogen 23 mg/dL (8-23); C Reactive Protein 243.6 mg/L (0.0-4.9); Calcium 8.6 mg/dL (8.5-10.5); Carbon Dioxide 25 mmol/L (22-29); Chloride 93 mmol/L (98-107); Creatine Phosphokinase 39 U/L (39-308); Globulin 3.5 g/dL (1.3-4.6); Glucose 131 mg/dL (65-115); Lactate Dehydrogenase 390 U/L (135-225); Magnesium 2.9 mg/dL (1.7-2.3); Osmolality Calculated 279 mOsm/kg (285-295); Potassium 3.4 mmol/L (3.5-5.1); Sodium 132 mmol/L (136-145); Total Bilirubin 1.3 mg/dL (0.15-1.2); Total Protein 7.1 g/dL (6.6-8.7)
[2020-07-10] MEDS: cefTRIAXone 1,000 MG in sodium chloride 0.9% (plus) 50 ML 100 MG IV (09:50)
[2020-07-10] MEDS: azithromycin 500 MG in sodium chloride 0.9% 250 ML 250 MG IV (10:28)
[2020-07-10] MEDS: potassium chloride ER 10 mEq Tablet 40 MEQ PO (10:28)
--- NOTE | 2020-07-10 11:59 | PM.HP ---
Providers/Chief Complaint Primary Care Provider: Judson Koehler MD Chief Complaint: COVID POSITIVE/ WEAK/ COUGH History of Present Illness Munir Salcedo is a 75 year old male who was seen in the emergency room about 7 days ago for Covid. He had some cough and increasing weakness and shortness of breath at that time. He was managed conservatively. Discharge. His shortness of breath has not been too bad. Continues to have little bit of a cough. He came into the emergency room today because of increasing weakness from persistent diarrhea that he has had. No fevers or chills that he has been complaining recently. No chest pain. Current Medications: SINGULAIR 10 MG ORAL TABLET (MONTELUKAST SODIUM) 1 tab once a day TRAMADOL HCL 50 MG ORAL TABLET (TRAMADOL HCL) 1 tab four times a day as needed pain # [id number] TAMSULOSIN HCL 0.4 MG ORAL CAPSULE (TAMSULOSIN HCL) 1 tab once a day MOBIC 15 MG ORAL TABLET (MELOXICAM) 1 tab once a day with food for arthritis/ tendinitis PREVNAR 13 INTRAMUSCULAR SUSPENSION (PNEUMOCOCCAL 13-MELISSA CONJ VACC) use as directed CAPSAICIN 0.1 % EXTERNAL CREAM (CAPSAICIN) apply four times a day to right knee TIZANIDINE HCL 2 MG ORAL TABLET (TIZANIDINE HCL) 2 taken by mouth before bed and daily occasionally as needed pain/spasm May cause drowsiness. VITAMIN D3 [id number] (CHOLECALCIFEROL) TAKE 1 CAPSULE BY MOUTH WEEKLY ASPIRIN 81 MG ORAL TABLET (ASPIRIN) 1 tab once a day TERAZOSIN HCL 2 MG ORAL CAPSULE (TERAZOSIN HCL) 1 tab once a day Allergies: NONE (Critical) Preventive: CHOLESTEROL: 200 (05/15/2018 7:41:00 AM) COLONOSCOPY: normal 2017 (04/26/2019 8:04:07 AM) BONE DENSITY: PSA: 0.98 (05/11/2017 8:48:00 AM) Flu: done today, left arm (06/18/2018 7:44:34 AM) DTAP: PNEUMOVAX: done today (04/23/2020 7:39:58 AM) PREVNAR 13: will do next year (04/23/2020 7:39:58 AM) ZOSTAVAX: will get done (04/23/2020 7:39:58 AM) Past, Family, and Social History Past History (reviewed - no changes required): PAST MEDICAL HISTORY: Hypertension; benign prostatic hypertrophy. benign heart murmur - neg echo 2015. Obstructed Sleep Apnea - cpap 4 PAST SURGICAL HISTORY: left testicle removed - had hydrocele. left shoulder rotator cuff 2012. 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 no smooking, no alcohol Review of Systems Narrative: General: No chronic fevers or chronic weight changes. HEENT: No acute changes in vision. No acute hearing loss. No new difficulty swallowing. Heart: No new chest pain or recent issues with coronary disease. Lungs: No history of TB. No chronic lung disease. GI: No history of GI bleeding. No hepatitis. No chronic nausea or vomitting. Renal: No dysuria or frequency. No hematuria Neuro: No acute neurological changes or deficits. Musculoskeletal: No acutely worsening joint pain or swelling. Medications/Allergies Home Medications Medication Instructions Recorded Confirmed Last Taken Type aspirin [Aspirin Low Dose] 81 mg PO DAILY 10/11/19 12/23/19 10/09/19 History terazosin 1 mg PO DAILY 10/11/19 12/23/19 10/10/19 History tizanidine 2 mg PO DAILY 10/11/19 12/23/19 10/10/19 History albuterol sulfate 2 inh INHALATION Q6H PRN #8 gm 07/05/20 Unknown Rx Allergies Allergy/AdvReac Type Severity Reaction Status Date / Time No Known Allergies Allergy Verified 12/23/19 10:47 PFSH Acute PFSH: Medical History Heart murmur Hernia of testicle Rotator cuff arthropathy of right shoulder Rupture of left biceps tendon Surgical History H/O hernia repair H/O unilateral orchiectomy History of colon resection S/p reverse total shoulder arthroplasty Family History Denies family history of Diabetes CAD (coronary artery disease) Clotting disorder Dementia Hyperlipidemia Psychiatric illness Chronic kidney disease (CKD) Suicide Anesthesia complication Bleeding disorder Family history of premature coronary artery disease Lung disease Cancer Hypertension Stroke Social History Smoking and tobacco status: never smoked Alcohol intake: current Alcohol intake frequency: holidays/special occasions only Marital status: Current occupational status: employed Current occupation: Part-time employment Vitals/I&O/Wt Last Vital Signs Temp 100.0 F H 07/10/20 09:56 Pulse 73 07/10/20 11:00 Resp 18 07/10/20 11:00 BP 110/62 07/10/20 11:00 Pulse Ox 96 07/10/20 11:00 07/09/20 07/10/20 07/10/20 22:59 06:59 14:59 Intake Total 799.25 / 799.25 Balance 799.25 / 799.25 Weight last 48 hrs Weight 170 lb Physical Exam Narrative: EXAM NARRATIVE: General: No acute distress, Alert. Well nourished. HEENT: PERRLA, EOMI. vision grossly normal. Throat clear. Neck: supple, no adenopathy. Heart: Regular rate and rhythm. No murmurs, rubs or gallops. Normal capillary refill. Lungs: Clear to auscultation. No wheezes, rhonchi or rales. Abdomen: Positive bowel sounds. Non-tender, non-distended. No hepatosplenomegaly. No gaurding. Extremities: No clubbing, cyanosis, or edema. Negative Nahomi's. Data : 07/10/20 08:25 07/10/20 08:25 Micro: Microbiology 07/10/20 09:40 Blood Culture - Preliminary Blood SPECIMEN COLLECTED 07/10/20 09:40 Blood Culture - Preliminary Blood SPECIMEN COLLECTED A&P Assessment and plan (1) Dehydration: -Patient is having persistent diarrhea. Probably from Covid. We will go ahead and check some stool studies. Has some dehydration from this. We will do some IV fluids. Status: Acute (2) Viral pneumonitis: -Clinically patient is doing pretty well at this time. Requiring a little bit of oxygen. Not very symptomatic though. Continue to work at weaning him off oxygen. Status: Acute Attestations Medical Necessity Statement*: 75-year-old with diarrhea dehydration and viral pneumonitis requiring inpatient monitoring and treatment. Coding Level of Care Code Acute Pick Up And Delivery Driver for [facility] Brandi Diagnoses Dehydration E86.0 Viral pneumonitis J12.9
[2020-07-10] MEDS: iohexol 350 mg/mL 100 mL Btl 95 ML IV (12:14)
[2020-07-10] MEDS: sodium chloride 0.9% 1,000 ML 100 ML IV (16:09)
[2020-07-10] MEDS: enoxaparin 40 mg/0.4 mL Syringe SUBCUT (20:49)
[2020-07-11] VITALS (8 sets, daily range): BP systolic 103–142; BP diastolic 62–72; PULSE 54–88; RESP 12–24; TEMP 36.4–37.1; O2SAT 90–98
[2020-07-11] MEDS: sodium chloride 0.9% 1,000 ML 175 ML IV ×2 (01:48→09:46)
[2020-07-11 05:47] LABS: Basophils % 0.2 %; Hematocrit 37.9 % (42.0-52.0); Hemoglobin 12.5 g/dL (11.7-16.6); Lymphocytes # 0.4 10^3/uL (0.8-4.8); Lymphocytes % 8.2 %; Mean Corpuscular Hemoglobin 29.3 pg (28.0-34.0); Monocytes # 0.2 10^3/uL (0.2-0.9); Monocytes % 3.3 %; Neutrophils # 4.47 10^3/uL (1.8-7.7); Neutrophils % 87.5 %; Nucleated Red Blood Cells % 0 %; Platelet Count 456 10^3/cmm (130-400); Red Blood Count 4.26 10^6/uL (4.1-5.3); Red Cell Distribution Width 12.7 % (12.1-15.1); White Blood Count 5.1 10^3/uL (4.0-10.0)
[2020-07-11 06:24] LABS: Anion Gap 13.3 (5-19); Blood Urea Nitrogen 19 mg/dL (8-23); Calcium 8.5 mg/dL (8.5-10.5); Carbon Dioxide 22 mmol/L (22-29); Chloride 107 mmol/L (98-107); Glucose 146 mg/dL (65-115); Osmolality Calculated 291 mOsm/kg (285-295); Potassium 4.3 mmol/L (3.5-5.1); Sodium 138 mmol/L (136-145)
[2020-07-11 08:27] LABS: Alanine Aminotransferase 50 U/L (0-41); Albumin Level 2.8 g/dL (3.5-5.2); Alkaline Phosphatase 64 IU/L (40-130); Aspartate Amino Transferase 61 U/L (0-40); Globulin 3.8 g/dL (1.3-4.6); Total Bilirubin 0.4 mg/dL (0.15-1.2); Total Protein 6.6 g/dL (6.6-8.7)
--- NOTE | 2020-07-11 09:44 | USCV_ITS ---
Munir Salcedo Age: 75 Gender: M : 1945 Exam Date: 07/11/2020 10:36 Ordering Phys: Marek Cleveland MD Technologist: Dennis Chavez Exam Location: [facility] Indication: covid and weakness BP: 134 / 70 HR: 69 Rhythm: Sinus Technical Quality: Good MEASUREMENTS (Male / Female) Normal Values 2D ECHO LV Diastolic Diameter PLAX 3.4 cm 4.2 - 5.9 / 3.9 - 5.3 cm LV Systolic Diameter PLAX 2.3 cm IVS Diastolic Thickness 1.1 cm 0.6 - 1.0 / 0.6 - 0.9 cm IVS Systolic Thickness 1.2 cm LVPW Diastolic Thickness 0.9 cm 0.6 - 1.0 / 0.6 - 0.9 cm LVPW Systolic Thickness 1.1 cm LVOT Diameter 2.0 cm LV Ejection Fraction 2D Teich 62.3 % LV Ejection Fraction MOD 2C 73.5 % LV Ejection Fraction 2C AL 74.2 % LA Diameter 3.6 cm LA Width 4.3 cm LA Height 5.0 cm RA Width 4.1 cm RA Height 4.2 cm M-MODE LV Diastolic Diameter MM 4.9 cm 4.2 - 5.9 / 3.9 - 5.3 cm LV Systolic Diameter MM 2.6 cm LV Ejection Fraction MM Teich 78.2 % IVS Diastolic Thickness MM 0.7 cm 0.6 - 1.0 / 0.6 - 0.9 cm IVS Systolic Thickness MM 1.5 cm LVPW Diastolic Thickness MM 1.0 cm 0.6 - 1.0 / 0.6 - 0.9 cm LVPW Systolic Thickness MM 1.5 cm RV Diastolic Diameter MM 0.9 cm Aortic Annulus Diameter 3.6 cm LA Ao Ratio MM 1.1 MV E Point Septal Separation 1.1 cm DOPPLER AV Peak Velocity 214.0 cm/s LVOT Peak Velocity 110.0 cm/s AV Area Cont Eq vti 1.7 cm squared AV Area Cont Eq pk 1.6 cm squared MV Area PHT 5.0 cm squared Mitral E to A Ratio 0.9 MV E' Velocity 40.0 cm/s Mitral E to MV E' Ratio 9.6 Mitral E to LV E' Lateral Ratio 10.6 Mitral E to LV E' Septal Ratio 8.8 TR Peak Velocity 214.3 cm/s TR Peak Gradient 18.4 mmHg TV Peak E Velocity 87.0 cm/s Right Atrial Pressure 3.0 mmHg Pulmonary Artery Systolic Pressu 21.4 mmHg FINDINGS Left Ventricle Normal left ventricular size, systolic function and wall thickness, with no regional wall motion abnormalities. Left ventricular ejection fraction is estimated at 70 %. Normal diastolic function. Right Ventricle Normal right ventricular size and systolic function, RVSP 21.4 mmHg. Right Atrium Normal right atrial size. Left Atrium Upper normal left atrial size. Mitral Valve Mild mitral annular calcification. Mildly thickened mitral valve. No mitral valve stenosis. No mitral valve regurgitation. Aortic Valve Mildly thickened trileaflet aortic valve. No aortic valve stenosis. Trace aortic valve regurgitation. Tricuspid Valve Structurally normal tricuspid valve. Trace tricuspid valve regurgitation. Pulmonic Valve Pulmonic valve not well visualized. Pericardium No pericardial effusion. Aorta Normal-sized aortic root. CONCLUSIONS 1. Normal left ventricular size, systolic function and wall thickness, with no regional wall motion abnormalities. Left ventricular ejection fraction is estimated at 70 %. Normal diastolic function. 2. Normal right ventricular size and systolic function, RVSP 21.4 mmHg. 3. No significant valvular abnormality. 4. When compared to previous echocardiogram dated 12/24/2015, there may not have been any significant change. Kemi Ha MD (Electronically Signed) Final Date: 12 July 2020 12:07 S
[2020-07-11] MEDS: cefTRIAXone 1,000 MG in sodium chloride 0.9% (plus) 50 ML 100 MG IV (09:46)
[2020-07-11] MEDS: dexamethasone 4 mg/mL INJ 6 MG IVP (12:24)
--- NOTE | 2020-07-11 13:43 | PM.PN ---
Subjective Subjective: Interval history: This morning patient was examined, he tells me that he is feeling so-so, continues to have a cough, requiring 2 L nasal cannula, no shortness of breath out in bed, no more diarrhea, no fevers overnight, no chest pain Vitals/I&O/Wt Last Vital Signs Temp 98.0 F 07/11/20 12:00 Pulse 66 07/11/20 12:00 Resp 24 H 07/11/20 12:00 BP 103/67 07/11/20 12:00 Pulse Ox 91 07/11/20 12:00 07/10/20 07/11/20 07/11/20 22:59 06:59 14:59 Intake Total 240 / 1540.00 1205 / 2745.00 1050 / 1050 Output Total 750 / 750 400 / 1150 625 / 625 Balance -510 / 790.00 805 / 1595.00 425 / 425 Weight last 48 hrs Weight 77.111 kg Physical Exam Const: COMMON NORMALS: no acute distress and patient oriented x3 HENMT: COMMON NORMALS: normocephalic HEAD & SCALP: normocephalic Neck/C-Spine: COMMON NORMALS: no JVD Resp: COMMON NORMALS: normal respiratory effort, No retractions and No use of accessory muscles AUSCULTATION: crackles Cardio: COMMON NORMALS: no JVD, regular rate, regular rhythm, S1 normal heart sound present and S2 normal heart sound present RATE: regular rate RHYTHM: regular rhythm HEART SOUNDS: S1 normal heart sound present and S2 normal heart sound present GI: COMMON NORMALS: Normal to inspection, nondistended, normoactive bowel sounds present, Soft to palpation, non-tender, No hepatosplenomegaly present, no masses and no bruits PALPATION: Yes Soft to palpation and Yes No hepatosplenomegaly present Extremity: COMMON NORMALS: capillary refill normal, no clubbing, cyanosis or edema, no calf tenderness and no pedal edema Neuro: COMMON NORMALS: patient oriented x3 Psych: COMMON NORMALS: mental status grossly normal Data : 07/11/20 05:35 07/11/20 05:35 Micro: Microbiology 07/10/20 09:40 Blood Culture - Preliminary Blood NEGATIVE TO DATE 07/10/20 09:40 Blood Culture - Preliminary Blood Gram positive cocci A&P Assessment and plan (1) Acute respiratory failure due to COVID-19: -Patient tested positive for COVID-19 through the health department 7 days ago -Currently requiring 2 L nasal cannula, complaining of a cough, not feeling well, no shortness of breath at rest -CT angiogram of the chest shows prominent extensive bilateral interstitial and alveolar pulmonary infiltrates -Has transaminitis, elevated CRP, elevated pro-Noah Plan: -Continue Rocephin azithromycin -Start Decadron 6 mg IV push daily -Start remdesivir day 1 -Advair, albuterol -Oxygen therapy -Monitor respiratory status closely -Patient was receiving 175 cc an hour since since admission for diarrhea, will stop fluids, monitor for fluid overload, diurese with Lasix as needed -Monitor respiratory status closely -Patient is a full code -monitor QTC daily -Lovenox for DVT prophylaxis -will order echo Status: Acute (2) Transaminitis: Status: Acute Attestations Medical Necessity Statement*: Patient requires hospitalization due to acute respiratory failure secondary COVID-19 Coding Level 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
[2020-07-11] MEDS: azithromycin 500 MG in sodium chloride 0.9% 250 ML 250 MG IV (14:00)
[2020-07-11] MEDS: enoxaparin 40 mg/0.4 mL Syringe SUBCUT (21:31)
[2020-07-12] VITALS (7 sets, daily range): BP systolic 104–133; BP diastolic 63–74; PULSE 56–79; RESP 12–18; TEMP 36.3–37.1; O2SAT 93–97
[2020-07-12 03:43] LABS: Basophils % 0.1 %; Hemoglobin 11.9 g/dL (11.7-16.6); Lymphocytes # 0.5 10^3/uL (0.8-4.8); Lymphocytes % 5.8 %; Mean Corpuscular HGB Conc 33.1 g/dL (30.0-36.0); Mean Corpuscular Hemoglobin 29.2 pg (28.0-34.0); Mean Corpuscular Volume 88.5 fL (80-94); Monocytes # 0.3 10^3/uL (0.2-0.9); Monocytes % 3.4 %; Neutrophils # 7.37 10^3/uL (1.8-7.7); Neutrophils % 90.3 %; Nucleated Red Blood Cells % 0 %; Platelet Count 490 10^3/cmm (130-400); Red Blood Count 4.07 10^6/uL (4.1-5.3); Red Cell Distribution Width 12.8 % (12.1-15.1); White Blood Count 8.2 10^3/uL (4.0-10.0)
[2020-07-12 03:55] LABS: INR 1.22 (0.8-1.2)
[2020-07-12 04:03] LABS: Lactic Sepsis W/Reflex 1.7 mmol/L (0.5-2.2)
[2020-07-12 05:24] LABS: Alanine Aminotransferase 97 U/L (0-41); Albumin Level 2.7 g/dL (3.5-5.2); Alkaline Phosphatase 67 IU/L (40-130); Anion Gap 15.4 (5-19); Aspartate Amino Transferase 100 U/L (0-40); Blood Urea Nitrogen 21 mg/dL (8-23); Calcium 8.3 mg/dL (8.5-10.5); Carbon Dioxide 22 mmol/L (22-29); Chloride 105 mmol/L (98-107); Globulin 3.3 g/dL (1.3-4.6); Glucose 159 mg/dL (65-115); Magnesium 2.7 mg/dL (1.7-2.3); Osmolality Calculated 292 mOsm/kg (285-295); Phosphorus 2.9 mg/dL (2.5-4.5); Potassium 4.4 mmol/L (3.5-5.1); Sodium 138 mmol/L (136-145); Total Bilirubin 0.2 mg/dL (0.15-1.2)
[2020-07-12 05:30] LABS: NT Pro B Type Natriuretic Pept 251 pg/mL (0-125); Procalcitonin 0.39 ng/mL (0-0.5)
--- NOTE | 2020-07-12 07:00 | XRR_ITS ---
PROCEDURE INFORMATION: Exam: XR Chest, 1 View Exam date and time: 07/11/2020 11:59 PM Age: 75 years old Clinical indication: Shortness of breath; Additional info: SOB TECHNIQUE: Imaging protocol: XR of the chest Views: 1 view. COMPARISON: CR XR chest 1V portable [id number] 07/10/2020 8:49 AM FINDINGS: Lungs: Again noted is extensive consolidation of the left lung and patchy hazy infiltration of the right mid lung zone. This has not significantly changed since the previous chest x-ray from 07/10/2020. No new infiltrates are seen. Pleural space: Unremarkable. No pleural effusion. No pneumothorax. Heart/Mediastinum: Unremarkable. No cardiomegaly. Bones/joints: A right shoulder prosthesis appears in satisfactory position.. XR/XR chest 1V portable [id number] IMPRESSION: Bilateral pulmonary consolidation especially in the left lung unchanged.
[2020-07-12] MEDS: acetaminophen 500 mg Tablet 1000 MG PO (07:59)
[2020-07-12] MEDS: cefTRIAXone 1,000 MG in sodium chloride 0.9% (plus) 50 ML 100 MG IV (09:26)
--- NOTE | 2020-07-12 09:51 | ECG_ITS ---
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 Measurements Intervals [place] Rate: 59 P: 42 [place]: 139 QRS: 42 QRSD: 100 T: 21 QT: 452 QTc: 449 Interpretive Statements SINUS BRADYCARDIA Compared to ECG 07/10/2020 08:56:44 Sinus rhythm no longer present Ventricular premature complex(es) no longer present Left ventricular hypertrophy no longer present T-wave abnormality no longer present Electronically Signed On 07-12-2020 12:11:30 CDT by Kemi Ha M.D. [id number]
[2020-07-12] MEDS: azithromycin 500 MG in sodium chloride 0.9% 250 ML 250 MG IV (11:03)
--- NOTE | 2020-07-12 11:50 | P.PN_ITS ---
Subjective Subjective: Interval history: This morning patient examined, he remained afebrile overnight, still complaining of some shortness of breath with exertion, but overall doing better, is on 2 to 3 L nasal cannula, states that he feels so in so, but getting better, tells me that his sinuses are acting up, would like to try sinus medication Vitals/I&O/Wt Last Vital Signs Temp 97.3 F L 07/12/20 11:38 Pulse 79 07/12/20 11:38 Resp 18 07/12/20 11:38 BP 104/63 07/12/20 11:38 Pulse Ox 94 07/12/20 11:38 07/11/20 07/12/20 07/12/20 22:59 06:59 14:59 Intake Total 490 / 1780 240 / 2020 240 / 240 Output Total 450 / 1250 300 / 1550 Balance 40 / 530 -60 / 470 240 / 240 Physical Exam Const: COMMON NORMALS: no acute distress and patient oriented x3 HENMT: COMMON NORMALS: normocephalic HEAD & SCALP: normocephalic Neck/C-Spine: COMMON NORMALS: no JVD Resp: COMMON NORMALS: normal respiratory effort, No retractions and No use of accessory muscles AUSCULTATION: crackles Cardio: COMMON NORMALS: no JVD, regular rate, regular rhythm, S1 normal heart sound present and S2 normal heart sound present RATE: regular rate RHYTHM: regular rhythm HEART SOUNDS: S1 normal heart sound present and S2 normal heart sound present GI: COMMON NORMALS: Normal to inspection, nondistended, normoactive bowel sounds present, Soft to palpation, non-tender, No hepatosplenomegaly present, no masses and no bruits PALPATION: Yes Soft to palpation and Yes No hepatosplenomegaly present Extremity: COMMON NORMALS: capillary refill normal, no clubbing, cyanosis or edema, no calf tenderness and no pedal edema Neuro: COMMON NORMALS: patient oriented x3 Psych: COMMON NORMALS: mental status grossly normal Data : 07/12/20 03:00 07/12/20 03:00 Micro: Microbiology 07/10/20 09:40 Blood Culture - Preliminary Blood Coagulase negativ staphylococc 07/10/20 09:40 Blood Culture - Preliminary Blood NEGATIVE TO DATE A&P Assessment and plan (1) Acute respiratory failure due to COVID-19: -Patient tested positive for COVID-19 through the health department 7 days ago -Currently requiring 2-3 L nasal cannula, complaining of a cough, not feeling well, some shortness of breath with exertion -CT angiogram of the chest shows prominent extensive bilateral interstitial and alveolar pulmonary infiltrates -Has transaminitis, elevated CRP, elevated pro-Noah Plan: -Continue Rocephin and azithromycin -Start Decadron 6 mg IV push daily -Start remdesivir day 2 -Advair, albuterol -Oxygen therapy -Monitor respiratory status closely -Cetirizine -1 dose of Lasix today -Monitor respiratory status closely -Patient is a full code -monitor QTC daily, QTC 449 ms -Lovenox 40 mg for DVT prophylaxis -Cardiac echocardiogram pending Status: Acute (2) Transaminitis: Status: Acute Attestations Medical Necessity Statement*: Patient requires hospitalization for acute respiratory failure secondary COVID-19 Coding Level of 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
[2020-07-12] MEDS: FUROsemide 10 mg/mL SDV 4mL 40 MG IVP (13:14)
[2020-07-12] MEDS: cetirizine 10 mg Tablet PO (13:14)
[2020-07-12] MEDS: dexamethasone 4 mg/mL INJ 6 MG IVP (13:15)
[2020-07-12] MEDS: enoxaparin 40 mg/0.4 mL Syringe SUBCUT (21:56)
[2020-07-13] VITALS (12 sets, daily range): BP systolic 105–157; BP diastolic 50–75; PULSE 51–70; RESP 16–18; TEMP 36.4–36.6; O2SAT 93–98
[2020-07-13 05:16] LABS: Hematocrit 35.4 % (42.0-52.0); Hemoglobin 11.6 g/dL (11.7-16.6); Lymphocytes # 0.5 10^3/uL (0.8-4.8); Mean Corpuscular HGB Conc 32.8 g/dL (30.0-36.0); Mean Corpuscular Hemoglobin 29.1 pg (28.0-34.0); Mean Corpuscular Volume 88.7 fL (80-94); Mean Platelet Volume 10.5 fL (7.4-10.4); Monocytes # 0.3 10^3/uL (0.2-0.9); Monocytes % 4.7 %; Neutrophils # 5.71 10^3/uL (1.8-7.7); Neutrophils % 86.2 %; Nucleated Red Blood Cells % 0 %; Platelet Count 428 10^3/cmm (130-400); Red Blood Count 3.99 10^6/uL (4.1-5.3); Red Cell Distribution Width 13.1 % (12.1-15.1); White Blood Count 6.6 10^3/uL (4.0-10.0)
[2020-07-13 05:38] LABS: INR 1.19 (0.8-1.2)
[2020-07-13 05:48] LABS: Alanine Aminotransferase 86 U/L (0-41); Alkaline Phosphatase 67 IU/L (40-130); Aspartate Amino Transferase 44 U/L (0-40); Blood Urea Nitrogen 16 mg/dL (8-23); Calcium 8.2 mg/dL (8.5-10.5); Carbon Dioxide 26 mmol/L (22-29); Chloride 107 mmol/L (98-107); Globulin 2.4 g/dL (1.3-4.6); Glucose 139 mg/dL (65-115); Magnesium 2.6 mg/dL (1.7-2.3); Osmolality Calculated 297 mOsm/kg (285-295); Phosphorus 3.3 mg/dL (2.5-4.5); Sodium 142 mmol/L (136-145); Total Bilirubin 0.3 mg/dL (0.15-1.2); Total Protein 5.4 g/dL (6.6-8.7)
[2020-07-13 05:49] LABS: Lactic Sepsis W/Reflex 0.9 mmol/L (0.5-2.2)
[2020-07-13 05:54] LABS: Anion Gap 13.4 (5-19); Potassium 4.4 mmol/L (3.5-5.1)
[2020-07-13 05:59] LABS: NT Pro B Type Natriuretic Pept 124 pg/mL (0-125); Procalcitonin 0.18 ng/mL (0-0.5)
--- NOTE | 2020-07-13 06:00 | ECG_ITS ---
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 Measurements Intervals [place] Rate: 53 P: 42 SC: 130 QRS: 69 QRSD: 97 T: 48 QT: 476 QTc: 451 Interpretive Statements SINUS BRADYCARDIA VOLTAGE CRITERIA FOR LVH [MEETS CRITERIA IN ONE OF: R(aVL), S(V1), R(V5), R(V5/V6)+S(V1)] Compared to ECG 07/12/2020 11:12:14 Left ventricular hypertrophy now present Electronically Signed On 07-14-2020 7:37:48 CDT by Kemi Ha M.D. [id number]
[2020-07-13] MEDS: cetirizine 10 mg Tablet PO (08:32)
[2020-07-13] MEDS: cefTRIAXone 1,000 MG in sodium chloride 0.9% (plus) 50 ML 100 MG IV (10:29)
[2020-07-13] MEDS: dexamethasone 4 mg/mL INJ 6 MG IVP (10:29)
[2020-07-13] MEDS: acetaminophen 500 mg Tablet 1000 MG PO ×2 (10:45→22:24)
[2020-07-13] MEDS: azithromycin 500 MG in sodium chloride 0.9% 250 ML 250 MG IV (11:29)
--- NOTE | 2020-07-13 12:15 | P.PN_ITS ---
Subjective Subjective: Interval history: He states that he seemed to be feeling a bit better. Does not feel quite as short of breath. No fevers or chills. Diarrhea is improved. Vitals/I&O/Wt Last Vital Signs Temp 97.7 F 07/13/20 08:00 Pulse 60 07/13/20 08:00 Resp 17 07/13/20 08:00 BP 105/50 07/13/20 08:00 Pulse Ox 94 07/13/20 08:00 07/12/20 07/13/20 07/13/20 22:59 06:59 14:59 Intake Total 640 / 1920 240 / 1920 360 / 360 Output Total 1600 / 3000 400 / 3000 250 / 250 Balance -960 / -1080 -160 / -1080 110 / 110 Physical Exam Narrative: EXAM NARRATIVE: General: No acute distress, Alert. Well nourished. Heart: Regular rate and rhythm. No murmurs, rubs or gallops. Normal capillary refill. Lungs: Some rhonchi noted throughout but no significant crackles or wheezes noted.. Abdomen: Positive bowel sounds. Non-tender, non-distended. No hepatosplenomegaly. No gaurding. Extremities: No clubbing, cyanosis, or edema. Negative Nahomi's Data : 07/13/20 04:50 07/13/20 04:50 Micro: Microbiology 07/10/20 09:40 Blood Culture - Preliminary Blood Coagulase negativ staphylococc A&P Assessment and plan (1) Acute respiratory failure due to COVID-19: -This is his predominant problem at this time. He is still on oxygen at 2 L. Seems to be stable. We will plan to finish the course of remdesivir and most likely discharge home on some oxygen at home. Status: Acute (2) Viral pneumonitis: Status: Acute (3) Dehydration: -Seem to be resolved with IV fluids. Diarrhea has resolved. Status: Acute Attestations Medical Necessity Statement*: 75-year-old gentleman with dehydration from diarrhea and some respiratory distress from Covid. Requiring continued inpatient IV treatments and monitoring. 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
--- NOTE | 2020-07-13 14:14 | DCPLANNER ---
Pg 2 of IM updated and reviewed with pt's ; Leidy via the phone - [phone]. No questions, copy provided.
[2020-07-13] MEDS: albuterol 8 gm MDI 2 PUFF INHALATION (20:20)
[2020-07-13] MEDS: enoxaparin 40 mg/0.4 mL Syringe SUBCUT (21:51)
[2020-07-14] VITALS (8 sets, daily range): BP systolic 116–163; BP diastolic 63–75; PULSE 51–80; RESP 16–20; TEMP 36.4–36.8; O2SAT 92–98
[2020-07-14 04:51] LABS: Basophils % 0.1 %; Hematocrit 39.6 % (42.0-52.0); Hemoglobin 12.7 g/dL (11.7-16.6); Lymphocytes # 0.9 10^3/uL (0.8-4.8); Lymphocytes % 11.7 %; Mean Corpuscular HGB Conc 32.1 g/dL (30.0-36.0); Mean Corpuscular Hemoglobin 29.3 pg (28.0-34.0); Mean Corpuscular Volume 91.5 fL (80-94); Mean Platelet Volume 9.6 fL (7.4-10.4); Monocytes # 0.3 10^3/uL (0.2-0.9); Monocytes % 3.9 %; Neutrophils # 6.34 10^3/uL (1.8-7.7); Neutrophils % 82.9 %; Nucleated Red Blood Cells % 0 %; Platelet Count 499 10^3/cmm (130-400); Red Blood Count 4.33 10^6/uL (4.1-5.3); Red Cell Distribution Width 13.3 % (12.1-15.1); White Blood Count 7.7 10^3/uL (4.0-10.0)
[2020-07-14 04:53] LABS: INR 1.09 (0.8-1.2)
[2020-07-14 05:02] LABS: Alanine Aminotransferase 147 U/L (0-41); Albumin Level 3.3 g/dL (3.5-5.2); Alkaline Phosphatase 75 IU/L (40-130); Anion Gap 12.2 (5-19); Aspartate Amino Transferase 108 U/L (0-40); Blood Urea Nitrogen 15 mg/dL (8-23); C Reactive Protein 18.9 mg/L (0.0-4.9); Calcium 8.6 mg/dL (8.5-10.5); Carbon Dioxide 28 mmol/L (22-29); Chloride 104 mmol/L (98-107); Glucose 117 mg/dL (65-115); Magnesium 2.5 mg/dL (1.7-2.3); Osmolality Calculated 292 mOsm/kg (285-295); Phosphorus 3.2 mg/dL (2.5-4.5); Potassium 4.2 mmol/L (3.5-5.1); Sodium 140 mmol/L (136-145); Total Bilirubin 0.3 mg/dL (0.15-1.2); Total Protein 6.3 g/dL (6.6-8.7)
[2020-07-14 05:15] LABS: NT Pro B Type Natriuretic Pept 231 pg/mL (0-125); Procalcitonin 0.13 ng/mL (0-0.5)
[2020-07-14 06:24] LABS: Lactic Sepsis W/Reflex 1.2 mmol/L (0.5-2.2)
--- NOTE | 2020-07-14 06:30 | XR_ITS ---
WS: [id number] Exam: XR chest 1V portable [id number] Date/Time of Exam: 07/14/2020 4:46 AM Reason For Exam: Pneumonia Findings: Comparison 07/12/2020. Patchy infiltrates noted throughout the left lung show some improvement since previous study. Infiltr ates in the mid and upper right lung show no change. Normal cardiomediastinal structures. Right rever se shoulder prosthesis noted. XR/XR chest 1V portable [id number] IMPRESSION: 1. Bilateral pulmonary infiltrates. There has been some improvement on the left but no other change since previous study.
[2020-07-14] MEDS: cefTRIAXone 1,000 MG in sodium chloride 0.9% (plus) 50 ML 100 MG IV (09:02)
[2020-07-14] MEDS: dexamethasone 4 mg/mL INJ 6 MG IVP (09:03)
[2020-07-14] MEDS: cetirizine 10 mg Tablet PO (09:03)
[2020-07-14] MEDS: azithromycin 500 MG in sodium chloride 0.9% 250 ML 250 MG IV (10:49)
--- NOTE | 2020-07-14 11:42 | PM.DCS ---
Discharge Providers Date of Admission: 07/10/20 12:44 Date of Discharge: July 14, 2020 Attending Provider at Admission: Judson Koehler MD Attending Provider at Discharge: Judson Koehler MD Primary Care Provider: Judson Koehler MD Diagnoses at Discharge Discharge Diagnosis (1) Acute respiratory failure due to COVID-19: Status: Acute (2) Viral pneumonitis: Status: Acute (3) Dehydration: Status: Acute Reason for Visit Reason for Visit: COVID POSITIVE/ WEAK/ COUGH Hospital Course Discharge Summary: admitted for dehydration from diarrhea and developed some hypoxia and viral pneumonia from Covid that was diagnosed 7 days prior. Had remdisivir and oxygen and steriods. Overall doing ok with this. felt better. Had oxygen weaned down. DC in stable condition. Discharge Data Data Completed and Pending: Completed Studies During Hospitalization Category Date Time Status CT angio chest PE protcl [id number] Stat Cat Scan 07/10/20 09:25 Completed XR chest 1V aracelis ble [id number] Routine Exams 07/12/20 07:00 Completed XR chest 1V aracelis ble [id number] Routine Exams 07/14/20 06:30 Completed XR chest 1V aracelis ble [id number] Stat Exams 07/10/20 08:47 Completed CV echo complete* [id number] Routine Ultrasound 07/11/20 09:44 Completed Pending at discharge Category Date Time Status Bacterial Antigen Stat Lab 07/11/20 13:47 Uncollected Blood Culture Sta t Lab 07/10/20 09:40 Results CDIFF [Clostridio ides Difficile PCR ] Routine Lab 07/10/20 19:36 Uncollected Sputum Culture an d Gram Stain Stat Lab 07/14/20 10:10 Received Stool Culture, Ba cterial [Enteric B acterial Panel by Lab 07/10/20 19:36 Uncollected PCR] Routine stool Ova and Par asite [Enteric Par asite Panel by PCR ] Lab 07/10/20 19:37 Uncollected Routine Labs from last 24 hours 07/14/20 07/14/20 07/14/20 04:00 04:00 04:00 WBC RBC Hgb Hct MCV MCH MCHC RDW Plt Count MPV Neut % (Auto) Lymph % (Auto) Jenkins % (Auto) Eos % (Auto) Baso % (Auto) Neut # (Auto) Lymph # (Auto) Jenkins # (Auto) Eos # (Auto) Baso # (Auto) Nucleated RBC % (a uto) Nucleated RBCs # PT 14.40 INR 1.09 Sodium Potassium Chloride Carbon Dioxide Anion Gap BUN Creatinine GFR Calculation Glucose Calculated Osmolal ity Lactic Acid 1.2 Calcium Phosphorus Magnesium Total Bilirubin AST ALT Alkaline Phosphata se C-Reactive Protein NT-Pro-B Natriuret Pep 231 H Total Protein Albumin Globulin Procalcitonin 0.13 07/14/20 07/14/20 04:00 04:00 WBC 7.7 RBC 4.33 Hgb 12.7 Hct 39.6 L MCV 91.5 MCH 29.3 MCHC 32.1 RDW 13.3 Plt Count 499 H MPV 9.6 Neut % (Auto) 82.9 Lymph % (Auto) 11.7 Jenkins % (Auto) 3.9 Eos % (Auto) 0.0 Baso % (Auto) 0.1 Neut # (Auto) 6.34 Lymph # (Auto) 0.9 Jenkins # (Auto) 0.3 Eos # (Auto) 0.0 Baso # (Auto) 0.0 Nucleated RBC % (a uto) 0 Nucleated RBCs # 0.0 PT INR Sodium 140 Potassium 4.2 Chloride 104 Carbon Dioxide 28 Anion Gap 12.2 BUN 15 Creatinine 0.6 L GFR Calculation Not Reportable Glucose 117 H Calculated Osmolal ity 292 Lactic Acid Calcium 8.6 Phosphorus 3.2 Magnesium 2.5 H Total Bilirubin 0.3 AST 108 H ALT 147 H Alkaline Phosphata se 75 C-Reactive Protein 18.9 H NT-Pro-B Natriuret Pep Total Protein 6.3 L Albumin 3.3 L Globulin 3.0 Procalcitonin Vitals: Last Vital Signs Temp 97.6 F 07/14/20 08:00 Pulse 55 L 07/14/20 08:00 Resp 18 07/14/20 08:00 BP 152/63 07/14/20 08:00 Pulse Ox 96 07/14/20 11:06 Discharge Plan Discharge Patient Disposition: Home Condition: Stable Prescriptions: New prednisone 20 mg tablet 20 mg PO DAILY 3 Days Qty: 3 RF: 0 Continued tizanidine 2 mg tablet 2 mg PO DAILY RF: 0 terazosin 1 mg Capsule 1 mg PO DAILY RF: 0 aspirin [Aspirin Low Dose] 81 mg Tablet,Delayed Release (Dr/Ec) 81 mg PO DAILY RF: 0 albuterol sulfate 90 mcg/actuation HFA aerosol inhaler 2 inh INHALATION Q6H PRN (Reason: shortness of breath or wheezing) Qty: 8 RF: 0 Discharge Orders: Discharge Order (Routine); Ordered 07/14/20 Ordered By: Judson Koehler Other Ambulatory Orders: DME: Oxygen (Order) Location: None Selected Ordered By: Judson Koehler Referrals: Judson Koehler MD [Primary Care Provider] - Discharge Diet: Regular Discharge Activity: Resume usual activity Activity Restrictions/Additional Instructions: - Discharge home with home oxygen at 2L per [place]. Please send with a home pulse oximeter. - Call if oxygen drops below 90% - Call if increased shortness of breath. - Isolate for another 10 days. - Call Dr. Koehler tomorrow with an update on how you are doing. 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
--- NOTE | 2020-07-15 12:52 | PC.SOCIAL ---
Attempted to do a phone call follow up with the patient, I received a voicemail and left a message for the patient to call back.
--- NOTE | 2020-07-16 10:09 | PC.SOCIAL ---
Spoke with the patient on the phone. He stated that he has an appointment to see Dr. Koehler on the 27 of July. He did understand his discharge paperwork, but when asked about his medications, if he was able to pick them up, he stated that because Dr. 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 I asked what pharmacy he used, he stated that he uses [facility] pharmacy. 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 I informed the patient that I would pick it up for him and take it to his house and place it in his mailbox. I also informed him to read the instructions on the medication bottle, that he needed to take one pill with food daily and that he could take one as soon as he received the medication. He was very grateful. His met me at the door (Mailbox was next to door) and received the meds along with information about Plasma Donation). While on the phone I asked how he was doing, he stated that he was doing much better but was still spitting up some phlegm. I informed him that that is a common occurrence with recovery from the COVID 19 infection but if it gets to being too much or turns colors to call his doctor IVONNE. We spoke about signs and symptoms to watch for such as; blue lips or face, fever of 104 or higher, trouble breathing or catching breath, chest pain lasting longer than 5 minute, confusion or trouble waking up. We also spoke about ways to improve the immune system, these included; eating and drinking well, eating fruits and vegetables, lean meat, low fat dairy products, keeping up with immunizations such as flu/pneumonia/shingles shots, going to all appointments and follow ups, lessening and stress. We also spoke about ways to stop or prevent the spread of the COVID 19. These included; social distancing at all times, washing hands longer than 20 seconds with a good lather, sanitizing surfaces in home and in vehicle, masking up when possible and washing any cloth masks after use and allow them to dry completely before next use, sneezing or coughing into arm, restricting company or going out in public. We spoke a little about the benefits of plasma donation.
== END 2020-07-14 16:30 | disposition home or self-care (01) | DRG 177 ==
LOC: ER 12:44 → MEDSURG 13:12
PROVIDERS: Emergency Medicine; Family Medicine; Admitting Provider Family Medicine; PCP Family Medicine; Visit Provider Family Medicine
DX: U07.1 COVID-19 (principal); J12.89 Other viral pneumonia; J96.00 Acute respiratory failure, unspecified whether with hypoxia or hypercapnia; R19.7 Diarrhea, unspecified; I10 Essential (primary) hypertension; N40.0 Benign prostatic hyperplasia without lower urinary tract symptoms; G47.33 Obstructive sleep apnea (adult) (pediatric); Z90.79 Acquired absence of other genital organ(s); Z90.49 Acquired absence of other specified parts of digestive tract; Z96.619 Presence of unspecified artificial shoulder joint; I25.10 Atherosclerotic heart disease of native coronary artery without angina pectoris; E86.0 Dehydration
CPT/HCPCS: 12345; 36415; 36600; 71045; 71275; 80048; 80053; 82550; 82803; 83605; 83615; 83735; 83880; 84100; 84145; 84484; 85025; 85378; 85384; 85610; 86140; 87040; 87070; 87106; 87205; 93005; 93306; 94640; 94664; 96372; 96375; 99284; J0456; J0696; J1100; J1650; J1940; J2405; J7030; J7050; Q9967

== ENCOUNTER 2020-09-16 12:22 | Outpatient (CLI) | payer MEDICARE, MEDICAID, SELFPAY ==
--- NOTE | 2020-09-16 12:32 | US_ITS ---
WS: [id number] ULTRASOUND THYROID TECHNIQUE: Ultrasound of the thyroid. CLINICAL INFORMATION: NECK PAIN COMPARISON: None. FINDINGS: Thyroid: Right and left thyroid lobes are normal in size and echotexture. 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 Additional incidental left thyroid cyst measu ring 6.3 x 4.8 x 3.7 mm. No suspicious nodules to target for biopsy. Right thyroid lobe: 4.6 cm x 1.5 cm x 1.9 cm Left thyroid lobe: 3.7 cm x 1.4 cm x 1.4 cm. Isthmus: 0.3 mm. Cervical lymphadenopathy: None. US/US thyroid [id number] IMPRESSION: No suspicious thyroid nodules.
== END 2020-09-16 12:23 | disposition home or self-care (01) ==
LOC: RAD 12:25
PROVIDERS: PCP Family Medicine; Visit Provider Family Medicine
DX: M54.2 Cervicalgia (principal)
CPT/HCPCS: 76536

== ENCOUNTER 2020-12-30 10:04 | Outpatient (CLI) | payer MEDICARE, MEDICAID, SELFPAY ==
[2020-12-30 10:18] VITALS: BMI 25.1
--- NOTE | 2020-12-30 10:27 | NMCV_ITS ---
NM lulu perf SPECT r/s* [id number] Munir Salcedo Age: 75 Gender: M : 1945 Exam Date: 12/30/2020 12:43 Ordering Phys: Judson Koehler MD Technologist: NICHOLAS Ross Exam Location: [facility] Indications: CHEST PAIN STRESS TEST Please see separate stress test report in [facility] for full findings IMAGE PROTOCOL Rest/Stress 1 Exercise Day Radiopharmaceutical Dose (mCi) Administration Site Administered by Rest: Tc-99m 10.7 IV NICHOLAS Ross Sestamibi Stress:Tc-99m 32.7 IV NICHOLAS Puente Sestamibi Rest: 30-Dec-2020 60 Discovery 630 Stress: 30-Dec-2020 30 Discovery 630 Radiopharmaceutical was injected at 91 % maximum heart rate. Images obtained in supine and prone position. SPECT RESULTS Technical Quality: Excellent Raw Data Analysis: Normal Image Corrections: No attenuation or motion correction applied Summed Stress Score: 0 Summed Rest Score: 0 Summed Difference Score: 0 PERFUSION FINDINGS SPECT images demonstrate homogeneous tracer distribution throughout the myocardium. FUNCTIONAL RESULTS (calculated via Gated SPECT) Stress Image LV EF (%): 65 Stress EDV (mL):99 TID: 0.85 Stress ESV (mL):35 FUNCTIONAL FINDINGS: The left ventricle is normal in size. Transient Ischemia Dilatation of 0.85. There is normal left ventricular systolic function. The left ventricular ejection fraction is normal with a value of 65%. There is normal left ventricular wall thickening with no regional wall motion abnormality. Normal end diastolic and end systolic volumes. IMPRESSIONS 1. Myocardial perfusion imaging is normal. 2. Overall left ventricular systolic function is normal without regional wall motion abnormalities. 3. The left ventricular ejection fraction is normal with a value of 65% 4. This study suggests a low likelihood of angiographically significant coronary artery disease. Kemi Ha MD (Electronically Signed) Final Date: 30 December 2020 18:22 S
--- NOTE | 2020-12-30 10:27 | ECG_ITS ---
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 Interpretive Statements NAME OF STUDY: EXERCISE SESTAMIBI STRESS TEST INDICATION: Chest pain Baseline blood pressure of 143/75 mm Hg, heart rate of 55 beats per minute and oxygen saturation of 98%. EKG showed sinus bradycardia, normal axis. Voltage criteria for left ventricular hypertrophy. The patient exercised for 6 minutes 52 seconds on a standard Anil protocol. Patient attained a maximum heart rate of 148 beats per minute(100% of the maximum predicted heart rate) with a blood pressure at the peak exercise of 189/77 mm Hg and oxygen saturation 89%. The EKG at the peak exercise revealed sinus tachycardia with PAC with no significant ST-T wave changes. Interpretation limited by artifact. Patient did not have any chest pain with the exercise. Frequent PACs noted during exercise and PVCs and PVCs couplets noted during recovery. The study was terminated due to exertional fatigue and shortness of breath. During the recovery phase, there were no new changes. Blood pressure at the end of the recovery phase was 151/79 mm Hg with a heart rate of 73 beats per minute and oxygen saturation 98%. CONCLUSION: 1. Normal EKG response to treadmill exercise. 2. No exercise-induced chest pain or cardiac arrhythmia 3. Excellent exercise tolerance, attained a maximum of 10.2 METs. Maximum VO2 of 35.7 mL/kg/min. 4. Baseline hypertension with normal response to exercise. 5. Perfusion scan will be documented separately. Electronically Signed On 01-06-2021 12:19:36 CDT by Kemi Ha M.D. [id number]
[2020-12-30 12:21] VITALS: BP 151/79; PULSE 84
== END 2020-12-30 10:05 | disposition home or self-care (01) ==
LOC: RAD 10:12 → CDL 10:18
PROVIDERS: PCP Family Medicine; Visit Provider Family Medicine
DX: R07.9 Chest pain, unspecified (principal)
CPT/HCPCS: 78452; 93017; A9500

== ENCOUNTER 2021-02-26 16:35 | Emergency (ER) | payer MEDICARE, MEDICAID, SELFPAY ==
[2021-02-26 16:47] VITALS: BP 137/75; PULSE 71; RESP 18; TEMP 36.8; O2SAT 96; BMI 24.3
--- NOTE | 2021-02-26 17:56 | CTR_ITS ---
PROCEDURE INFORMATION: Exam: CT Head Without Contrast Exam date and time: 02/26/2021 5:56 PM Age: 76 years old Clinical indication: Injury or trauma; Blunt trauma (contusions or hematomas); Injury details: Backwards fall. Negative loc. Small occipital abrasion; Additional info: Head injury TECHNIQUE: Imaging protocol: Computed tomography of the head without contrast. Radiation optimization: All CT scans at this facility use at least one of these dose optimization techniques: automated exposure control; mA and/or kV adjustment per patient size (includes targeted exams where dose is matched to clinical indication); or iterative reconstruction. COMPARISON: CT head wo con* [id number] 09/05/2016 6:41 PM RADIATION DOSE METRICS: Total DLP (mGy-cm): 890.83 FINDINGS: Brain: There is mild cortical atrophy. Low-density changes in the white matter are consistent with nonspecific small vessel chronic ischemic change. There is no intracranial mass, hemorrhage or edema. Cerebral ventricles: No ventriculomegaly. Paranasal sinuses: Visualized sinuses are unremarkable. No fluid levels. Mastoid air cells: Visualized mastoid air cells are well aerated. Bones/joints: Unremarkable. No acute fracture. Soft tissues: Unremarkable. CT/CT head wo con* [id number] IMPRESSION: 1. Atrophy and chronic ischemic changes. 2. No acute intracranial finding. 3. No significant change from 09/05/2016. Radiation Dose CTDIVOL = (mGy): DLP = 890.83 (mGy-cm)
--- NOTE | 2021-02-26 18:16 | W.ED.HEATRA ---
HPI - Head Injury General: Chief complaint: Head Injury Stated complaint: Fall, Head Injury Time Seen by Provider: 02/26/21 17:57 Source: patient Mode of arrival: ambulatory Limitations: no limitations History of Present Illness: HPI Narrative: 76-year-old male states he fell backwards today around 3 or 4 PM. He states that he hit his posterior head and does have a hematoma back there. He denies any other injuries. He actually denies headache currently but he want to get checked out. He denies any loss consciousness. Denies any vomiting diarrhea. He denies any neck pain. He has been ambulatory since the event. Complaint: head injury Associated symptoms: Deny nausea, neck pain or vomiting Review of Systems Const: Denies: fever(s), chills, body aches or change in appetite Eyes: Denies: blurry vision or eye discomfort ENMT: Denies: throat pain or dental pain Card: Denies: chest pain Resp: Denies: dyspnea GI: Denies: abdominal pain, nausea, vomiting or diarrhea : Denies: dysuria Musc: Denies: neck pain or back pain Skin/Breast: Denies: rash Neuro: Denies: headache(s) Psych: Denies: depression Michael/Lymph: Denies: easy bruising All/Imm: Denies: urticaria PFSH ED PFSH: Medical History (Updated 02/26/21 @ 19:01 by Sylvester Navarro MD) Acute respiratory failure due to COVID-19 Heart murmur Hernia of testicle Rotator cuff arthropathy of right shoulder Rupture of left biceps tendon Transaminitis Surgical History H/O hernia repair H/O unilateral orchiectomy History of colon resection S/p reverse total shoulder arthroplasty Family History Denies family history of Diabetes CAD (coronary artery disease) Clotting disorder Dementia Hyperlipidemia Psychiatric illness Chronic kidney disease (CKD) Suicide Anesthesia complication Bleeding disorder Family history of premature coronary artery disease Lung disease Cancer Hypertension Stroke Social History Smoking and tobacco status: never smoked Alcohol intake: current Alcohol intake frequency: holidays/special occasions only Marital status: Current occupational status: employed Current occupation: Part-time employment Physical Exam Const: COMMON NORMALS: no acute distress, patient oriented x3 and healthy appearing HENMT: COMMON NORMALS: normocephalic HEAD & SCALP: normocephalic OTHER: posterior scalp hematoma Eye: COMMON NORMALS: Equal, round and reactive pupils present and EOMs intact bilaterally PUPIL: Yes Equal, round and reactive pupils present Neck/C-Spine: COMMON NORMALS: full ROM and supple Chest: COMMONS NORMALS: normal inspection of the chest and normal palpation of entire chest wall Resp: COMMON NORMALS: normal respiratory effort, No retractions, No use of accessory muscles and clear to auscultation bilaterally AUSCULTATION: clear to auscultation bilaterally Cardio: COMMON NORMALS: regular rate, regular rhythm and No murmurs present (Cardio) RATE: regular rate RHYTHM: regular rhythm GI: COMMON NORMALS: Normal to inspection, nondistended, normoactive bowel sounds present, Soft to palpation, non-tender and no masses PALPATION: Yes Soft to palpation Extremity: COMMON NORMALS: normal to inspection and full ROM Neuro: COMMON NORMALS: patient oriented x3, moves all extremities and no focal motor deficits Psych: COMMON NORMALS: mental status grossly normal, Normal thought process present and cooperative THOUGHT PROCESS: Normal thought process present Skin: COMMON NORMALS: no rashes or lesions noted and no wounds GENERAL SKIN EXAM: no rashes or lesions noted Course Vital Signs: Vital signs: Vital Signs Temperature 98.3 F 02/26/21 16:47 Pulse Rate 71 02/26/21 16:47 Respiratory Rate 18 02/26/21 16:47 Blood Pressure 137/75 02/26/21 16:47 Pulse Oximetry 96 02/26/21 16:47 MDM - Head Injury MDM Narrative: Medical decision making narrative: Patient presents here with a closed head injury. His head CT here is normal. He is well-appearing here and has no signs of any other injuries no neck injury. He is stable for discharge to follow-up with PCP and return if worsening. Imaging Data^: CT Head: Attestation: I personally reviewed and interpreted this imaging study as follows: Radiologist's impression: [address] [address] [address] Scan Report Signed Patient: Munir Salcedo Unit #: [id number] : 1945 Age/Sex: 76 / M ADM Date: 02/26/21 Loc: ER Room/Bed: Attending Dr: Ordering Provider/Ordering MD: Sylvester Navarro MD Date of Service: 02/26/21 Procedure(s): CT head wo con* [id number] Accession Number(s): [id number] Report Number: [id number] PROCEDURE INFORMATION: Exam: CT Head Without Contrast Exam date and time: 02/26/2021 5:56 PM Age: 76 years old Clinical indication: Injury or trauma; Blunt trauma (contusions or hematomas); Injury details: Backwards fall. Negative loc. Small occipital abrasion; Additional info: Head injury TECHNIQUE: Imaging protocol: Computed tomography of the head without contrast. Radiation optimization: All CT scans at this facility use at least one of these dose optimization techniques: automated exposure control; mA and/or kV adjustment per patient size (includes targeted exams where dose is matched to clinical indication); or iterative reconstruction. COMPARISON: CT head wo con* [id number] 09/05/2016 6:41 PM RADIATION DOSE METRICS: Total DLP (mGy-cm): 890.83 FINDINGS: Brain: There is mild cortical atrophy. Low-density changes in the white matter are consistent with nonspecific small vessel chronic ischemic change. There is no intracranial mass, hemorrhage or edema. Cerebral ventricles: No ventriculomegaly. Paranasal sinuses: Visualized sinuses are unremarkable. No fluid levels. Mastoid air cells: Visualized mastoid air cells are well aerated. Bones/joints: Unremarkable. No acute fracture. Soft tissues: Unremarkable. CT/CT head wo con* [id number] IMPRESSION: 1. Atrophy and chronic ischemic changes. 2. No acute intracranial finding. 3. No significant change from 09/05/2016. Discharge Plan Discharge Patient Disposition: Home Clinical Impression: Closed head injury Qualifiers: Encounter type: initial encounter Qualified Code(s): S09.90XA - Unspecified injury of head, initial encounter Condition: Stable Prescriptions: No Action tizanidine 2 mg tablet 2 mg PO DAILY RF: 0 terazosin 1 mg Capsule 1 mg PO DAILY RF: 0 aspirin [Aspirin Low Dose] 81 mg Tablet,Delayed Release (Dr/Ec) 81 mg PO DAILY RF: 0 albuterol sulfate 90 mcg/actuation HFA aerosol inhaler 2 inh INHALATION Q6H PRN (Reason: shortness of breath or wheezing) Qty: 8 RF: 0 Discharge Orders: Discharge ED (Routine); Ordered 02/26/21 Ordered By: Sylvester Navarro Referrals: Judson Koehler MD [Primary Care Provider] - 1-3 days Discharge Diet: Advance as tolerated Discharge Activity: Resume usual activity Patient Instructions: Minor Head Injury (ED) Coding Level of Care Code ED Swimming Instructor for Chg Fwd Exam Comprehensive
[2021-02-26 20:26] VITALS: PULSE 78; RESP 18; O2SAT 96
[2021-02-26 20:53] VITALS: BP 136/72; PULSE 92; RESP 18; O2SAT 97
== END 2021-02-26 20:32 | disposition home or self-care (01) ==
PROVIDERS: Emergency Provider Emergency Medicine; PCP Family Medicine
DX: S09.8XXA Other specified injuries of head, initial encounter (principal); Z79.82 Long term (current) use of aspirin; W19.XXXA Unspecified fall, initial encounter
CPT/HCPCS: 70450; 99283

== ENCOUNTER → 2021-04-20 08:01 | Outpatient (BNVA) | payer MEDICARE, MEDICAID, SELFPAY | PROVIDERS: PCP Family Medicine; Referring Provider Family Medicine; Visit Provider Specialist | DX: R20.0 Anesthesia of skin (principal); R20.2 Paresthesia of skin | CPT/HCPCS: 95886; 95910 ==

== ENCOUNTER 2021-05-08 18:00 | Emergency (ER) | payer MEDICARE, MEDICAID, SELFPAY ==
[2021-05-08 18:23] VITALS: BP 146/80; PULSE 70; RESP 18; TEMP 36.4; O2SAT 97; BMI 25.8
[2021-05-08 18:36] VITALS: BP 136/70; PULSE 67; RESP 18; O2SAT 96
--- NOTE | 2021-05-08 18:36 | W.ED.WOUNDLC ---
HPI - Wound/Laceration General: Chief Complaint: Wound/Laceration Stated Complaint: R finger lac Time Seen by Provider: 05/08/21 18:29 History of Present Illness: HPI narrative: Cut right finger while pulling engine earlier today. Onset (ago): minute(s) Extremity Location: Right: hand Place: home Patient tetanus UTD: No Context: accidental Associated symptoms: Reports no associated symptoms; Denies chills or fever(s) Review of Systems Const: Denies: fever(s) or chills Skin/Breast: Reports: other (Laceration to the right third finger cutting with a knife in the kitchen wh) Psych: Denies: anxiety or depression PFSH ED PFSH: Medical History Acute respiratory failure due to COVID-19 Heart murmur Hernia of testicle Rotator cuff arthropathy of right shoulder Rupture of left biceps tendon Transaminitis Surgical History H/O hernia repair H/O unilateral orchiectomy History of colon resection S/p reverse total shoulder arthroplasty Family History Denies family history of Diabetes CAD (coronary artery disease) Clotting disorder Dementia Hyperlipidemia Psychiatric illness Chronic kidney disease (CKD) Suicide Anesthesia complication Bleeding disorder Family history of premature coronary artery disease Lung disease Cancer Hypertension Stroke Social History Smoking and tobacco status: never smoked Alcohol intake: current Alcohol intake frequency: holidays/special occasions only Marital status: Current occupational status: employed Current occupation: Part-time employment Physical Exam Const: COMMON NORMALS: no acute distress GENERAL APPEARANCE: cooperative Psych: COMMON NORMALS: mental status grossly normal Skin: OTHER: 0.5 cm laceration to distal aspect of right #3 finger to the side of the nail bleeding controlled. Closed with skin adhesive and dressing. Procedures Laceration Laceration 1: Site: hand Side (If applicable): right Size (cm): 0.5 Description: linear and flap Depth: simple, single layer Skin layer closed with: other (Skin adhesive) Course Vital Signs: Vital signs: Vital Signs Temperature 97.6 F 05/08/21 18:23 Pulse Rate 70 08/21/21 18:23 Respiratory Rate 18 05/08/21 18:23 Blood Pressure 146/80 05/08/21 18:23 Pulse Oximetry 97 05/08/21 18:23 Discharge Plan Discharge Prescriptions: No Action meloxicam 15 mg tablet 15 mg PO DAILY RF: 0 tizanidine 2 mg tablet 2 mg PO DAILY RF: 0 terazosin 1 mg Capsule 1 mg PO DAILY RF: 0 aspirin [Aspirin Low Dose] 81 mg Tablet,Delayed Release (Dr/Ec) 81 mg PO DAILY RF: 0 albuterol sulfate 90 mcg/actuation HFA aerosol inhaler 2 inh INHALATION Q6H PRN (Reason: shortness of breath or wheezing) Qty: 8 RF: 0 Coding Level of Care Code ED Mechanical Cad Designer for Sher Paz
[2021-05-08 18:50] VITALS: BP 136/70; PULSE 64; RESP 18; O2SAT 95
== END 2021-05-08 18:52 | disposition home or self-care (01) ==
PROVIDERS: Emergency Provider Nurse Practitioner Family; PCP Family Medicine
DX: S61.212A Laceration without foreign body of right middle finger without damage to nail, initial encounter (principal); W26.8XXA Contact with other sharp object(s), not elsewhere classified, initial encounter
CPT/HCPCS: 12001; 99281

== ENCOUNTER 2021-10-12 22:07 | Emergency (ER) | payer MEDICARE, MEDICAID, SELFPAY ==
[2021-10-12 22:14] VITALS: BP 153/79; PULSE 73; RESP 16; TEMP 36.4; O2SAT 98; BMI 25.4
--- NOTE | 2021-10-12 22:18 | W.ED.GENADLT ---
HPI - General Adult General: Chief complaint: General Medical Stated complaint: Left Ankle Swelling Time Seen by Provider: 10/12/21 22:17 History of Present Illness: Mr. Salcedo is a 76-year-old gentleman without pertinent history who presents emergency department due to ankle pain. He reports being at his baseline health and went about his normal day. 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 He got home and noticed pain in his left ankle. He denies noticing the pain throughout the day with ambulation. Additionally he has noticed swelling. Swelling is on the medial aspect of his ankle. There is no tenderness or swelling in the calf. No history of blood clots. He denies fevers or her significant other symptoms. Intensity of symptoms is mild to moderate and slightly worse with range of motion. Denies associated numbness or tingling. Denies similar episodes in the past. No wounds and no history of diabetes. No other specific changes in health, exacerbating, or alleviating factors identified. Onset (ago): hour(s) Location: lower extremity Radiation: non-radiation Severity: moderate Quality: aching Pain Consistency: constant Relieving factors: none Exacerbating factors: movement Associated symptoms: Reports other Review of Systems General: Reports: 10 or more systems reviewed and unremarkable except in HPI and below PFSH ED PFSH: Medical History (Updated 10/12/21 @ 22:56 by Luis Burk MD) Acute respiratory failure due to COVID-19 Heart murmur Hernia of testicle Rotator cuff arthropathy of right shoulder Rupture of left biceps tendon Transaminitis Surgical History H/O hernia repair H/O unilateral orchiectomy History of colon resection S/p reverse total shoulder arthroplasty Family History Denies family history of Diabetes CAD (coronary artery disease) Clotting disorder Dementia Hyperlipidemia Psychiatric illness Chronic kidney disease (CKD) Suicide Anesthesia complication Bleeding disorder Family history of premature coronary artery disease Lung disease Cancer Hypertension Stroke Social History Smoking and tobacco status: never smoked Alcohol intake: current Alcohol intake frequency: holidays/special occasions only Marital status: Current occupational status: employed Current occupation: Part-time employment Physical Exam Const: COMMON NORMALS: alert GENERAL APPEARANCE: cooperative and well developed HENMT: COMMON NORMALS: normocephalic and atraumatic HEAD & SCALP: normocephalic and atraumatic Eye: COMMON NORMALS: conjunctivae normal CONJUNCTIVA: Yes conjunctivae normal SCLERA: sclerae normal Neck/C-Spine: COMMON NORMALS: supple GENERAL: Yes trachea midline Resp: COMMON NORMALS: normal respiratory effort and clear to auscultation bilaterally EFFORT & INSPECTION: Yes able to speak in complete sentences AUSCULTATION: clear to auscultation bilaterally Cardio: COMMON NORMALS: regular rate and regular rhythm RATE: regular rate RHYTHM: regular rhythm GI: COMMON NORMALS: Soft to palpation PALPATION: Yes Soft to palpation and No Tenderness to palpation present (GI) PERCUSSION: normal to percussion Extremity: NARRATIVE EXTREMITY EXAM: Ankle with mild edema localized. No skin breaks or rash/lesions. TTP to posterior region of medial mal and distal tibia adjacently GENERAL: Yes normal exam except as noted and Yes edema Neuro: COMMON NORMALS: moves all extremities SENSORIUM/ORIENTATION: Yes alert and No Orientation impaired Psych: COMMON NORMALS: mental status grossly normal and Normal thought process present THOUGHT PROCESS: Normal thought process present Course ED course: - Patient was seen and evaluated by me at bedside - Vital signs obtained - Initial evaluation notable for exam as above, patient qualifies for x-ray under [place] ankle rules -Symptomatic treatments ordered - Imaging notable for negative x-ray for fracture - Upon serial reexamination after treatment the patient was similar to mildly improved - Based on patient history, evaluation, labs, and imaging as interpreted the most likely cause of the patient's condition is ankle swelling of unclear etiology, possible ligamentous strain - The results of ED evaluation were discussed with the patient including prescriptions and/or symptomatic cares (if applicable) including appropriate and responsible use, followup plan, and return precautions. The patient verbalized understanding and felt safe for discharge. - Patient discharged in satisfactory condition. Note: Click bubbles or prepopulated cook in note writing are used for assistance with data collection and billing and are inherently more limited than narrative and other text portions of this note. Please use narrative for additional clinical history and defer to narrative/free test for any case of contradictory information. If information appears in only free text or click bubble it should be considered present or absent as reported. Please contact note flex o writer operator for clarifications of clinical information or contradictory information. MDM is a brief summary, contradictory or erroneous seeming information should be clarified and full note should be reviewed. Vital Signs: Vital signs: Vital Signs Temperature 97.6 F 10/12/21 22:14 Pulse Rate 73 10/12/21 22:14 Respiratory Rate 16 10/12/21 22:14 Blood Pressure 153/79 10/12/21 22:14 Pulse Oximetry 98 10/12/21 22:14 MDM - General Adult Medical Decision Making 76 yo male with ankle swelling and pain. No skin changes or wounds. No evidence of DVT. Xrays negative. Given location likely ligamentous strain. Satisfactory for outpatient management and followup. Medical Records I reviewed the patient's medical records. Lab Data I reviewed the patient's lab results. Radiology Impressions Ankle X-Ray 10/12/21 22:23 IMPRESSION: 1. No fracture. 2. No evidence of osteomyelitis. 3. Medial soft tissue edema. Discharge Plan Discharge Patient Disposition: Home Clinical Impression: Acute ankle pain Condition: Stable Prescriptions: No Action meloxicam 15 mg tablet 15 mg PO DAILY 0RF tizanidine 2 mg tablet 2 mg PO DAILY 0RF terazosin 1 mg Capsule 1 mg PO DAILY 0RF aspirin [Aspirin Low Dose] 81 mg Tablet,Delayed Release (Dr/Ec) 81 mg PO DAILY 0RF albuterol sulfate 90 mcg/actuation HFA aerosol inhaler 2 inh INHALATION Q6H PRN (Reason: shortness of breath or wheezing) Qty: 8 0RF Discharge Orders: Discharge ED (Routine); Ordered 10/12/21 Ordered By: Luis Burk Referrals: Judson Koehler MD [Primary Care Provider] - Discharge Diet: Usual diet Discharge Activity: Resume usual activity Patient Instructions: Arthralgia (ED), Swollen Joint (ED) Activity Restrictions/Additional Instructions: Thank you for visiting the emergency department. You were seen and evaluated for ankle pain. The exact cause of your symptoms is unclear as no acute fracture was identified. Please follow-up with your primary care provider. You may use [id number] medications for your symptoms however please do not exceed the daily recommended dosage and please keep in mind that many namebrand medications contain the same active ingredients. Additionally heat, elevation, and/or ice may be helpful. Do not apply ice directly to the skin and use a 2:1 ratio for off to on time for ice such as if you apply ice to the region for 20 minutes leave it off for at least 40 minutes afterwards before reapplying it. Return to the emergency department for uncontrolled pain, or anything else that you are concerned about and feel needs emergency department evaluation. Coding Level of Care Code ED Side Puller for Sher Paz
--- NOTE | 2021-10-12 22:23 | XRR_ITS ---
PROCEDURE INFORMATION: Exam: XR Left Ankle Exam date and time: 10/12/2021 10:23 PM Age: 76 years old Clinical indication: Left; Patient HX: Sudden onset of pain to medial side of ankle. No injury. ; Additional info: Ankle pain, medial TECHNIQUE: Imaging protocol: XR Left ankle. Views: 3 or more views. COMPARISON: No relevant prior studies available. FINDINGS: Bones/joints: There is a heel spur. No fracture. No bone destruction or periosteal elevation. Soft tissues: Medial soft tissue edema. XR/XR ankle LT min 3V* [id number] IMPRESSION: 1. No fracture. 2. No evidence of osteomyelitis. 3. Medial soft tissue edema.
[2021-10-12] MEDS: ketorolac 30 mg/mL INJ 15 MG IM (22:36)
[2021-10-12] MEDS: acetaminophen 500 mg Tablet 1000 MG PO (22:36)
== END 2021-10-12 23:25 | disposition home or self-care (01) ==
PROVIDERS: Emergency Provider Emergency Medicine; PCP Family Medicine
DX: M25.572 Pain in left ankle and joints of left foot (principal); Z79.82 Long term (current) use of aspirin
CPT/HCPCS: 73610; 96372; 99283; J1885

== ENCOUNTER 2022-02-28 13:55 | Outpatient (CLI) | payer MEDICARE, MEDICAID, SELFPAY ==
--- NOTE | 2022-02-28 14:11 | USCV_ITS ---
Munir Salcedo Age: 77 Gender: M : 1945 Exam Date: 02/28/2022 15:20 Ordering Phys: Judson Koehler MD Technologist: SLAVA Exam Location: [facility] [place] Indication: Right leg pain HISTORY: Lower extremity pain. PROCEDURES: Venous duplex imaging was performed in only the right lower extremity. The following venous structures were evaluated: common femoral vein, profunda vein, proximal portion of the greater saphenous vein, superficial femoral vein, and the popliteal vein. In addition, the posterior tibial and peroneal trunk were evaluated. FINDINGS: Normal 2-D Doppler and augmentation and compressibility throughout the lower extremity venous structures. Additional imaging through the proximal calf veins also reveals no thrombus. Limited evaluation of the greater saphenous vein is patent with no thrombus. CONCLUSIONS No DVT right lower extremity. Dr. Ashley Ramirez DO (Electronically Signed) Final Date: 28 February 2022 16:26 S
== END 2022-02-28 13:56 | disposition home or self-care (01) ==
LOC: RAD 13:58
PROVIDERS: PCP Family Medicine; Visit Provider Family Medicine
DX: M79.604 Pain in right leg (principal)
CPT/HCPCS: 93971

== ENCOUNTER 2022-03-09 18:21 | Emergency (ER) | payer MEDICARE, MEDICAID, SELFPAY ==
--- NOTE | 2022-03-09 18:24 | CTR_ITS ---
PROCEDURE INFORMATION: Exam: CT Head Without Contrast Exam date and time: 03/09/2022 6:38 PM Age: 77 years old Clinical indication: Injury or trauma; Fall; Blunt trauma (contusions or hematomas); Injury details: Fell, hit head on concrete, no loc TECHNIQUE: Imaging protocol: Computed tomography of the head without contrast. Radiation optimization: All CT scans at this facility use at least one of these dose optimization techniques: automated exposure control; mA and/or kV adjustment per patient size (includes targeted exams where dose is matched to clinical indication); or iterative reconstruction. COMPARISON: CT head wo con* [id number] 02/26/2021 6:24 PM RADIATION DOSE METRICS: Total DLP (mGy-cm): 826.23 FINDINGS: Brain: Normal. No hemorrhage. Unremarkable white matter. No mass effect. Cerebral ventricles: No ventriculomegaly. Paranasal sinuses: Visualized sinuses are unremarkable. No fluid levels. Mastoid air cells: Visualized mastoid air cells are well aerated. Bones/joints: Unremarkable. No acute fracture. Soft tissues: Unremarkable. CT/CT head wo con* [id number] IMPRESSION: No acute intracranial abnormality.
--- NOTE | 2022-03-09 18:24 | CTR_ITS ---
PROCEDURE INFORMATION: Exam: CT Cervical Spine Without Contrast Exam date and time: 03/09/2022 6:40 PM Age: 77 years old Clinical indication: Injury or trauma; Fall; Blunt trauma; Additional info: Fall, hit back of head on right TECHNIQUE: Imaging protocol: Computed tomography of the cervical spine without contrast. Radiation optimization: All CT scans at this facility use at least one of these dose optimization techniques: automated exposure control; mA and/or kV adjustment per patient size (includes targeted exams where dose is matched to clinical indication); or iterative reconstruction. COMPARISON: CT Cervical Spine wo* [id number] 09/05/2016 6:49 PM RADIATION DOSE METRICS: Total DLP (mGy-cm): 456.3 FINDINGS: Bones/joints: Grade 1 retrolisthesis of C3 over C4 and C5 over C6. Grade 1 anterolisthesis of C4 over C5. Discs/Spinal canal/Neural foramina: Multilevel degenerative disc disease. There is multilevel uncovertebral and facet hypertrophy with neural foramina narrowing. Lungs: Lung apices are normal. Soft tissues: Unremarkable. CT/CT cervical spin wo con* [id number] IMPRESSION: No acute abnormality.
[2022-03-09 19:01] VITALS: BP 126/69; PULSE 70; RESP 12; TEMP 37.3; O2SAT 96; BMI 24.7
--- NOTE | 2022-03-09 20:31 | ED_ITS ---
HPI - Fall General: Chief Complaint: Fall Stated Complaint: fall at 1:30pm/head injury/dizziness Time Seen by Provider: 03/09/22 20:24 Source: patient Mode of arrival: ambulatory Limitations: no limitations History of Present Illness: 77-year-old male states that he fell today and hit his posterior head around noon. He states he was seen in urgent care he does have an abrasion they told him in the laceration was minimal and did not need sutures. He has had no bleeding. He states he had a mild headache and some slight neck pain denies any worsening proving factors he had no loss conscious. Associated symptoms-after fall: Reports headache(s); Denies abdominal pain, chest pain or neck pain Review of Systems Const: Denies: fever(s), chills, body aches or change in appetite Eyes: Denies: blurry vision or eye discomfort ENMT: Denies: throat pain or dental pain Card: Denies: chest pain Resp: Denies: dyspnea GI: Denies: abdominal pain, nausea, vomiting or diarrhea : Denies: dysuria Musc: Denies: neck pain or back pain Skin/Breast: Denies: rash Neuro: Reports: headache(s) Psych: Denies: depression Michael/Lymph: Denies: easy bruising All/Imm: Denies: urticaria PFSH ED PFSH: Medical History (Updated 03/09/22 @ 20:32 by Sylvester Navarro MD) Acute respiratory failure due to COVID-19 Heart murmur Hernia of testicle Rotator cuff arthropathy of right shoulder Rupture of left biceps tendon Transaminitis Surgical History H/O hernia repair H/O unilateral orchiectomy History of colon resection S/p reverse total shoulder arthroplasty Family History Denies family history of Diabetes CAD (coronary artery disease) Clotting disorder Dementia Hyperlipidemia Psychiatric illness Chronic kidney disease (CKD) Suicide Anesthesia complication Bleeding disorder Family history of premature coronary artery disease Lung disease Cancer Hypertension Stroke Social History Smoking and tobacco status: never smoked Alcohol intake: current Alcohol intake frequency: holidays/special occasions only Marital status: Current occupational status: employed Current occupation: Part-time employment Physical Exam Const: COMMON NORMALS: no acute distress, patient oriented x3 and healthy appearing HENMT: COMMON NORMALS: normocephalic HEAD & SCALP: normocephalic OTHER: Abrasion to posterior head Eye: COMMON NORMALS: Equal, round and reactive pupils present and EOMs intact bilaterally PUPIL: Yes Equal, round and reactive pupils present Neck/C-Spine: COMMON NORMALS: full ROM and supple Chest: COMMONS NORMALS: normal inspection of the chest and normal palpation of entire chest wall Resp: COMMON NORMALS: normal respiratory effort, No retractions, No use of a ccessory muscles and clear to auscultation bilaterally AUSCULTATION: clear to auscultation bilaterally Cardio: COMMON NORMALS: regular rate, regular rhythm and No murmurs present (Cardio) RATE: regular rate RHYTHM: regular rhythm GI: COMMON NORMALS: Normal to inspection, nondistended, normoactive bowel sounds present, Soft to palpation, non-tender and no masses PALPATION: Yes Soft to palpation Extremity: COMMON NORMALS: normal to inspection and full ROM Neuro: COMMON NORMALS: patient oriented x3, moves all extremities and no focal motor deficits Psych: COMMON NORMALS: mental status grossly normal, Normal thought process present and cooperative THOUGHT PROCESS: Normal thought process present Skin: COMMON NORMALS: no rashes or lesions noted and no wounds GENERAL SKIN EXAM: no rashes or lesions noted Course Vital Signs: Vital signs: Vital Signs Temperature 99.2 F 03/09/22 19:01 Pulse Rate 70 03/09/22 19:01 Respiratory Rate 12 03/09/22 19:01 Blood Pressure 126/69 03/09/22 19:01 Pulse Oximetry 96 03/09/22 19:01 MDM - Fall Medical Decision Making Patient presents with a closed head injury from a fall. He does have a small abrasion no laceration. His head CT C-spine CT are normal he is stable for discharge he is to follow PCP and return if worsening. Lab Data Radiology Impressions Cervical Spine CT 03/09/22 18:24 IMPRESSION: No acute abnormality. Head CT 03/09/22 18:24 IMPRESSION: No acute intracranial abnormality. Discharge Plan Discharge Patient Disposition: Home Clinical Impression: Closed head injury Condition: Stable Prescriptions: No Action meloxicam 15 mg tablet 15 mg PO DAILY 0RF tizanidine 2 mg tablet 2 mg PO DAILY 0RF terazosin 1 mg Capsule 1 mg PO DAILY 0RF aspirin [David Low Dose Aspirin] 81 mg Tablet,Delayed Release (Dr/Ec) 81 mg PO DAILY 0RF albuterol sulfate 90 mcg/actuation HFA aerosol inhaler 2 inh INHALATION Q6H PRN (Reason: shortness of breath or wheezing) Qty: 8 0RF Discharge Orders: Discharge ED (Routine); Ordered 03/09/22 Ordered By: Sylvester Navarro Referrals: Judson Koehler MD [Primary Care Provider] - 1-3 days Discharge Diet: Advance as tolerated Discharge Activity: Resume usual activity Patient Instructions: Head Injury in Children (ED) Coding Level of Care Code ED Physical Therapy Teacher for Sher Paz
[2022-03-09 20:50] VITALS: BP 123/87; PULSE 60; RESP 18; O2SAT 98
== END 2022-03-09 20:52 | disposition home or self-care (01) ==
PROVIDERS: Emergency Provider Emergency Medicine; PCP Family Medicine
DX: S09.8XXA Other specified injuries of head, initial encounter (principal); Z79.82 Long term (current) use of aspirin; W19.XXXA Unspecified fall, initial encounter
CPT/HCPCS: 70450; 72125; 99283

== ENCOUNTER → 2022-08-09 10:02 | Outpatient (BNVA) | payer MEDICARE, MEDICAID, SELFPAY | PROVIDERS: PCP Family Medicine; Visit Provider Podiatrist Foot & Ankle Surgery | DX: M19.071 Primary osteoarthritis, right ankle and foot (principal); M20.21 Hallux rigidus, right foot | CPT/HCPCS: 73630; 99214 ==

== ENCOUNTER → 2022-10-03 08:53 | Outpatient (BNVA) | payer MEDICARE, MEDICAID, SELFPAY | PROVIDERS: PCP Family Medicine; Visit Provider Podiatrist Foot & Ankle Surgery | DX: M19.071 Primary osteoarthritis, right ankle and foot (principal); M20.21 Hallux rigidus, right foot | CPT/HCPCS: 99214 ==

== ENCOUNTER 2022-11-15 14:12 | Outpatient (CLI) | payer MEDICARE, MEDICAID, SELFPAY ==
--- NOTE | 2022-11-15 14:28 | XR_ITS ---
WS: [id number] Right hip, 2 views, 11/15/2022 Clinical Data: right hip pain Comparison: None. Findings: No fractures or dislocations are seen. The hip joint is intact. The right hip shows no erosion, scler osis, narrowing or fragmentation of the right femoral head. The soft tissues are not remarkable. The adjacent pelvis is normal. XR/XR hip RT 2-3V wo/w pel* [id number] Impression: Negative right hip. Tonnis classification: grade 0: normal radiographs
--- NOTE | 2022-11-15 14:28 | XR_ITS ---
WS: [id number] Chest 2 views, 11/15/2022 Clinical Data: cough Comparison: Portable chest, 07/14/2020 Findings: No nodules, masses or effusions are seen. The heart is normal. The pulmonary vascularity is not increased. No pneumonia or pneumothorax is seen. The aortic arch and descending thoracic aorta s how mild tortuosity. There is a right shoulder prosthesis and a left humeral head orthopedic anchor. XR/XR chest 2V* [id number] Impression: Atherosclerosis.
== END 2022-11-15 14:13 | disposition home or self-care (01) ==
LOC: RAD 14:16
PROVIDERS: PCP Family Medicine; Visit Provider Family Medicine
DX: M70.61 Trochanteric bursitis, right hip (principal); R05.9 Cough, unspecified
CPT/HCPCS: 71046; 73502

== ENCOUNTER → 2022-11-23 09:48 | Outpatient (BNVA) | payer MEDICARE, MEDICAID, SELFPAY | PROVIDERS: PCP Family Medicine; Visit Provider Otolaryngology | DX: Z71.1 Person with feared health complaint in whom no diagnosis is made (principal); R05.9 Cough, unspecified; J32.9 Chronic sinusitis, unspecified; J34.2 Deviated nasal septum | CPT/HCPCS: 99202; 99203 ==

== ENCOUNTER → 2022-12-26 10:47 | Outpatient (BNVA) | payer MEDICARE, MEDICAID, SELFPAY | PROVIDERS: PCP Family Medicine; Visit Provider Otolaryngology | DX: R22.1 Localized swelling, mass and lump, neck (principal) | CPT/HCPCS: 31575; 99213 ==

== ENCOUNTER 2023-01-02 06:56 | Outpatient (CLI) | payer MEDICARE, MEDICAID, SELFPAY ==
--- NOTE | 2023-01-02 07:00 | CT_ITS ---
WS: [id number] CT NECK WITH CONTRAST HISTORY: neck mass, masses marked superficial to the LEFT parotid gland. TECHNIQUE: Contiguous 5 mm axial images are performed through the neck with intravenous contrast. Sag ittal and coronal reformats are also submitted. All CT scans at [facility] use at least one o f these dose optimization techniques: automated exposure control; mA and/or kV adjustment per patient size (includes targeted exams where dose is matched to clinical indication); or iterative reconstruc tion. CONTRAST: CONTRAST: Omnipaque 350; 100 mL IV. DLP: 178.61 mGy.cm COMPARISON: None available. Marker is placed over the lateral LEFT neck. This marker is placed at the level of the superficial pa rotid gland. There is an overlying vascular structure which is most likely the superficial temporal v ein. A similar finding but not quite as prominent noted coursing anterior to the RIGHT parotid gland. No additional mass is identified. No adenopathy. No parotid gland mass. No parotid duct dilatation o r calcification. Time bases negative. No retropharyngeal or oropharyngeal or laryngeal abnormality is identified. Norm al midline structures. Normal thyroid gland. No adenopathy. Advanced degenerative disc disease and spondylosis in the cervical spine. Marked disc space narrowing at C3-4 and C5-6. Degenerative RIGHT curvature. Marked cervical facet joint arthritis. Visualized portions of the skull base demonstrate no abnormalities. Orbits and globes are within norm al limits. No soft tissue masses. Visualized paranasal sinuses and mastoid air cells are normal. Centrilobular emphysema at the lung apices. Prior RIGHT shoulder replacement. CT/CT neck w con* [id number] IMPRESSION: 1. Marker placed along the lateral LEFT neck in the palpable area corresponds to superficial LEFT temporal vein. No mass identified. Similar findings but sma ller noted on the RIGHT. 2. No lymphadenopathy. No parotid mass.
[2023-01-02 07:22] LABS: Blood Urea Nitrogen 17 mg/dL (8-23)
[2023-01-02] MEDS: iohexol 350 mg/mL 500 mL Btl (per mL) IV (07:31)
== END 2023-01-02 06:57 | disposition home or self-care (01) ==
LOC: RAD 06:57
PROVIDERS: Radiology Diagnostic Radiology; PCP Family Medicine; Visit Provider Otolaryngology
DX: R22.1 Localized swelling, mass and lump, neck (principal); M50.30 Other cervical disc degeneration, unspecified cervical region; M47.812 Spondylosis without myelopathy or radiculopathy, cervical region; Z96.611 Presence of right artificial shoulder joint
CPT/HCPCS: 70491; 82565; 84520; Q9967

== ENCOUNTER → 2023-01-18 08:29 | Outpatient (BNVA) | payer MEDICARE, MEDICAID, SELFPAY | PROVIDERS: PCP Family Medicine; Visit Provider Otolaryngology | DX: N40.0 Benign prostatic hyperplasia without lower urinary tract symptoms (principal); I10 Essential (primary) hypertension; G47.33 Obstructive sleep apnea (adult) (pediatric); Z99.89 Dependence on other enabling machines and devices; M19.071 Primary osteoarthritis, right ankle and foot | CPT/HCPCS: 80053; 80061; 84153; 85025; 99213 ==

== ENCOUNTER → 2023-01-25 09:53 | Outpatient (BNVA) | payer MEDICARE, MEDICAID, SELFPAY | PROVIDERS: PCP Family Medicine; Referring Provider Family Medicine; Visit Provider Specialist | DX: R20.0 Anesthesia of skin (principal); R20.2 Paresthesia of skin; M25.551 Pain in right hip | CPT/HCPCS: 73502; 99203 ==

== ENCOUNTER 2023-02-14 08:35 | Outpatient (RCR) | payer MEDICARE, SELFPAY | END 2023-02-15 23:59 | disposition home or self-care (01) | LOC: SPT 08:35 | PROVIDERS: PCP Family Medicine; Visit Provider Specialist | DX: M54.50 Low back pain, unspecified (principal); M53.3 Sacrococcygeal disorders, not elsewhere classified | CPT/HCPCS: 97161 ==

== ENCOUNTER 2023-05-09 22:30 | Emergency (ER) | payer OTHER, SELFPAY ==
[2023-05-09 22:33] VITALS: BP 144/78; PULSE 71; RESP 16; TEMP 36.6; O2SAT 95; BMI 26.4
--- NOTE | 2023-05-09 23:10 | XRR_ITS ---
PROCEDURE INFORMATION: Exam: XR Left Forearm Exam date and time: 05/09/2023 11:18 PM Age: 78 years old Clinical indication: Pain; Lower or forearm; Left; Additional info: Injury TECHNIQUE: Imaging protocol: Radiologic exam of the left forearm. Views: 2 views. COMPARISON: No relevant prior studies available. FINDINGS: Bones/joints: Normal. Soft tissues: Normal. XR/XR forearm LT 2V [id number] IMPRESSION: No acute findings.
--- NOTE | 2023-05-09 23:30 | W.ED.FALL ---
HPI - Fall General: Chief Complaint: Fall Stated Complaint: fall, left arm lac Time Seen by Provider: 05/09/23 22:47 Source: patient Mode of arrival: ambulatory Limitations: no limitations History of Present Illness: 78-year-old male states that he had tripped over a chair roughly 2 hours ago and fell. States he has left forearm is a small skin tear left forearm some slight pain in his left forearm. States he did hit his head no loss consciousness states he has a mild headache currently is a 2 out of 10 denies any neck pain. Denies any nausea vomiting Associated symptoms-after fall: Reports headache(s); Denies abdominal pain, chest pain or neck pain Review of Systems Const: Denies: fever(s) or chills Eyes: Denies: blurry vision or eye discomfort ENMT: Denies: throat pain or dental pain Card: Denies: chest pain Resp: Denies: dyspnea GI: Denies: abdominal pain, nausea, vomiting or diarrhea Musc: Reports: extremity pain; Denies: neck pain or back pain Skin/Breast: Denies: rash Neuro: Reports: headache(s) PFSH ED PFSH: Medical History Acute respiratory failure due to COVID-19 BPH (benign prostatic hyperplasia) Heart murmur Hernia of testicle Hypertension MUNDO on CPAP Osteoarthritis Rotator cuff arthropathy of right shoulder Rupture of left biceps tendon Transaminitis Surgical History H/O hernia repair H/O unilateral orchiectomy History of colon resection S/p reverse total shoulder arthroplasty Family History Denies family history of Diabetes CAD (coronary artery disease) Clotting disorder Dementia Hyperlipidemia Psychiatric illness Chronic kidney disease (CKD) Suicide Anesthesia complication Bleeding disorder Family history of premature coronary artery disease Lung disease Cancer Hypertension Stroke Social History Smoking and tobacco status: never smoked Alcohol intake: current Alcohol intake frequency: holidays/special occasions only Substance/Drug Use: never Marital status: Current occupational status: employed Current occupation: Part-time employment Physical Exam Const: COMMON NORMALS: no acute distress and patient oriented x3 HENMT: COMMON NORMALS: normocephalic and atraumatic HEAD & SCALP: normocephalic and atraumatic Eye: COMMON NORMALS: Equal, round and reactive pupils present PUPIL: Yes Equal, round and reactive pupils present Neck/C-Spine: COMMON NORMALS: full ROM and supple Chest: COMMONS NORMALS: normal inspection of the chest Resp: COMMON NORMALS: normal respiratory effort Extremity: NARRATIVE EXTREMITY EXAM: No tenderness to forearm he does have a superficial skin tear to left forearm less than 1 cm Neuro: COMMON NORMALS: patient oriented x3 Psych: COMMON NORMALS: mental status grossly normal Skin: COMMON NORMALS: no rashes or lesions noted GENERAL SKIN EXAM: no rashes or lesions noted Course Vital Signs: Vital signs: Vital Signs Temperature 98 F 05/09/23 22:33 Pulse Rate 71 05/09/23 22:33 Respiratory Rate 16 05/09/23 22:33 Blood Pressure 144/78 05/09/23 22:33 Pulse Oximetry 95 05/09/23 22:33 Oxygen Delivery Me thod Room Air 05/09/23 22:33 MDM - Fall Medical Decision Making Patient presents with a skin tear to his left forearm from a fall does not require sutures did update his tetanus x-ray shows no fracture he had no loss conscious his headaches very minimal I did discuss CT with him he states that he feels fine he does not want a CT at this time I do not believe he needs a CT they did inform him if his headache worsens he is to return immediately he understands agrees to plan. Medical Records I reviewed the patient's medical records. Lab Data I reviewed the patient's lab results. Discharge Plan Discharge Patient Disposition: Home Clinical Impression: Skin tear, Fall Condition: Stable Prescriptions: No Action triamcinolone acetonide 0.5 % cream 1 applic topical TID Qty: 15 12RF fluoxetine 10 mg capsule 10 mg PO DAILY Qty: 30 11RF methylprednisolone acetate [Depo-Medrol] 40 mg/mL suspension 40 mg intra-articular ONCE Qty: 1 0RF lidocaine (PF) 10 mg/mL (1 %) solution 10 mg intra-articular ONCE Qty: 1 0RF hydrocodone-acetaminophen 5-325 mg tablet 1 tab PO BID PRN (Reason: pain) 30 Days Qty: 45 0RF terazosin 2 mg capsule See Rx Instructions .ROUTE .COMPLEX Qty: 30 11RF Dose Instruction: TAKE 1 CAPSULE BY MOUTH EVERY DAY Rx Instructions: TAKE 1 CAPSULE BY MOUTH EVERY DAY temazepam 15 mg capsule 15 mg PO BEDTIME PRN (Reason: sleep) Qty: 30 5RF naproxen 500 mg tablet 500 mg PO BID Qty: 30 3RF tizanidine 2 mg tablet See Rx Instructions .ROUTE .COMPLEX Qty: 30 3RF Dose Instruction: TAKE ONE TABLET BY MOUTH DAILY Rx Instructions: TAKE ONE TABLET BY MOUTH DAILY aspirin [David Low Dose Aspirin] 81 mg Tablet,Delayed Release (Dr/Ec) 81 mg PO DAILY albuterol sulfate 90 mcg/actuation HFA aerosol inhaler 2 inh INHALATION Q6H PRN (Reason: shortness of breath or wheezing) Qty: 8 0RF Discharge Orders: Discharge ED (Routine); Ordered 05/09/23 Ordered By: Sylvester Navarro Referrals: Judson Koehler MD [Primary Care Provider] - 1-3 days Discharge Diet: Advance as tolerated Discharge Activity: Resume usual activity Patient Instructions: Skin Tear (ED) Coding Level of Care Code ED Director Of Curriculum for Sher Paz
[2023-05-09] MEDS: tetanus-dipt-pertussis 0.5 mL SDV IM (23:53)
== END 2023-05-10 | disposition home or self-care (01) ==
PROVIDERS: Emergency Provider Emergency Medicine; PCP Family Medicine
DX: S51.812A Laceration without foreign body of left forearm, initial encounter (principal); Z79.82 Long term (current) use of aspirin; I10 Essential (primary) hypertension; W18.09XA Striking against other object with subsequent fall, initial encounter; Z23 Encounter for immunization
CPT/HCPCS: 73090; 90471; 90715; 99283

== ENCOUNTER → 2023-05-10 10:45 | Outpatient (BNVA) | payer MEDICARE, MEDICAID, SELFPAY | PROVIDERS: PCP Family Medicine; Referring Provider Specialist; Visit Provider Psychiatry & Neurology Neurology | DX: M54.31 Sciatica, right side; R29.898 Other symptoms and signs involving the musculoskeletal system | CPT/HCPCS: 99203 ==

== ENCOUNTER → 2023-06-05 11:20 | Outpatient (BNVA) | payer MEDICARE, MEDICAID, SELFPAY | PROVIDERS: PCP Family Medicine; Visit Provider Specialist | DX: M19.041 Primary osteoarthritis, right hand | CPT/HCPCS: 73130; 99214; J1100; J2795; J3301 ==

== ENCOUNTER 2023-06-06 13:35 | Outpatient (CLI) | payer MEDICARE, MEDICAID, SELFPAY ==
--- NOTE | 2023-06-06 13:45 | MR_ITS ---
WS: [id number] MRI LUMBAR SPINE NONCONTRAST HISTORY: M54.9 - Dorsalgia, unspecified COMPARISON: None available. TECHNIQUE: Sagittal and axial multisequence imaging is submitted. Moderate increase in thoracic kyphosis. LEFT curvature thoracic spine and mild RIGHT curvature lumbar spine. L5 anterolisthesis by 6 mm. Pars defects are suspected at L5. Disc spaces are mildly narrowed through out. Conus terminates normally at L1-2 disc level. L1-L2: Mild bilateral facet arthritis. No stenosis. L2-L3: Mild bilateral facet joint arthritis. No focal disc protrusions. No high-grade stenosis. L3-L4: Osteophytic ridging with annular disc bulging. Moderate ligamentum flavum and facet arthritis. Vertebral body osteophytes encroach upon the RIGHT exiting L3 nerve root. Mild central, bilateral flowers barticular recess and foraminal stenosis. L4-L5: Mild disc bulging with moderate to severe ligamentum flavum hypertrophy. Moderate facet arthri tis. Nerve roots are becoming clumped within the thecal sac. Mild central and LEFT foraminal stenosis . Higher grade stenosis with facet joint arthropathy contacting the traversing RIGHT L5 nerve root. M oderate RIGHT subarticular recess stenosis. L5-S1: Diffuse annular disc bulging with severe ligamentum flavum and facet arthritis. Shallow centra l disc protrusion. There is encroachment upon the ventral thecal sac causing mild central and bilater al subarticular recess encroachment. Mild bilateral foraminal stenosis. Incidental note is made of hepatic cysts IMPRESSION: 1. Thoracolumbar scoliosis. 2. Grade 1 anterolisthesis of L5 by 6 mm. 3. L3-4: Mild central, bilateral subarticular recess and foraminal stenosis. 4. Mild central and LEFT foraminal stenosis. Moderate RIGHT subarticular recess stenosis with encroac hment upon the traversing RIGHT L5 nerve root. 5. Severe facet and ligamentum flavum hypertrophy at L5-S1. 6. L5-S1: Shallow central disc protrusion and disc bulging resulting in mild central, bilateral subar ticular recess and foraminal stenosis.
== END 2023-06-06 13:36 | disposition home or self-care (01) ==
PROVIDERS: PCP Family Medicine; Visit Provider Psychiatry & Neurology Neurology
DX: M41.9 Scoliosis, unspecified (principal); M54.9 Dorsalgia, unspecified; M47.896 Other spondylosis, lumbar region; M48.061 Spinal stenosis, lumbar region without neurogenic claudication; M25.78 Osteophyte, vertebrae; K76.89 Other specified diseases of liver; M51.27 Other intervertebral disc displacement, lumbosacral region
CPT/HCPCS: 72148

== ENCOUNTER → 2023-06-29 14:49 | Outpatient (BNVA) | payer MEDICARE, MEDICAID, SELFPAY | PROVIDERS: PCP Family Medicine; Referring Provider Psychiatry & Neurology Neurology; Visit Provider Orthopaedic Surgery | DX: M51.36 Other intervertebral disc degeneration, lumbar region (principal); M47.819 Spondylosis without myelopathy or radiculopathy, site unspecified; M41.80 Other forms of scoliosis, site unspecified | CPT/HCPCS: 72110; 99204 ==

== ENCOUNTER → 2023-07-05 11:13 | Outpatient (BNVA) | payer MEDICARE, MEDICAID, SELFPAY | PROVIDERS: PCP Family Medicine; Visit Provider Specialist | DX: M19.041 Primary osteoarthritis, right hand (principal) | CPT/HCPCS: 99213 ==

== ENCOUNTER → 2023-07-27 09:38 | Outpatient (BNVA) | payer MEDICARE, MEDICAID, SELFPAY | PROVIDERS: PCP Family Medicine; Visit Provider Family Medicine | DX: M19.90 Unspecified osteoarthritis, unspecified site (principal); I10 Essential (primary) hypertension; R55 Syncope and collapse; R51.9 Headache, unspecified; M19.071 Primary osteoarthritis, right ankle and foot; M19.041 Primary osteoarthritis, right hand | CPT/HCPCS: 80053; 80061; 83880; 85025; 86140 ==

== ENCOUNTER 2023-08-08 15:26 | Outpatient (CLI) | payer MEDICARE, MEDICAID, SELFPAY ==
--- NOTE | 2023-08-08 15:30 | CT_ITS ---
WS: [id number] CT HEAD TECHNIQUE: Noncontrast and contrast-enhanced CT of the head. CLINICAL INFORMATION: headache/ passed out COMPARISON: CT head 2021 DLP: 2167.[address] scans at [facility] use at least one of these dose optimization techniques: automated e xposure control; mA and/or kV adjustment per patient size (includes targeted exams where dose is matc hed to clinical indication); or iterative reconstruction. FINDINGS: No evidence intracranial hemorrhage or mass effect. Ventricular system and basal cisterns are patent. Moderate small vessel changes. Moderate parenchymal volume loss. Moderate cerebellar parenchymal vol ume loss. Intracranial vascular calcification. Paranasal sinuses are well aerated. Mastoid air cells are well aerated. Mucosal thickening RIGHT mastoid tip. Normal visualized posterior nasopharynx. No abnormal intracranial enhancement. No abnormal enhancing intracranial lesions. IMPRESSION: 1. No evidence of intracranial hemorrhage or mass effect. 2. Moderate small vessel changes with moderate parenchymal volume loss appears stable compared to 20 22. 3. No abnormal intracranial enhancement. 4. Intracranial vascular calcification.
[2023-08-08] MEDS: iohexol 350 mg/mL 500 mL Btl (per mL) IV (15:54)
== END 2023-08-08 15:27 | disposition home or self-care (01) ==
LOC: RAD 15:26
PROVIDERS: PCP Family Medicine; Visit Provider Family Medicine
DX: R51.9 Headache, unspecified (principal); R55 Syncope and collapse; I67.2 Cerebral atherosclerosis
CPT/HCPCS: 70470; Q9967

== ENCOUNTER → 2023-08-21 09:26 | Outpatient (BNVA) | payer MEDICARE, MEDICAID, SELFPAY | PROVIDERS: PCP Family Medicine; Visit Provider Anesthesiology Pain Medicine | DX: M47.816 Spondylosis without myelopathy or radiculopathy, lumbar region; M51.16 Intervertebral disc disorders with radiculopathy, lumbar region; M41.9 Scoliosis, unspecified; M43.16 Spondylolisthesis, lumbar region; M48.061 Spinal stenosis, lumbar region without neurogenic claudication | CPT/HCPCS: 99204 ==

== ENCOUNTER 2023-08-28 14:29 | Outpatient (CLI) | payer MEDICARE, MEDICAID, SELFPAY ==
--- NOTE | 2023-08-28 14:42 | XR_ITS ---
WS: [email or web address] Exam: XR chest 2V* [id number] Date/Time of Exam: 08/28/2023 2:52 PM Reason For Exam: sob Comparison 11/15/2022. Lungs are hyperinflated and clear. Normal cardiomediastinal silhouette. No pleural effusions. Bony st ructures are intact. RIGHT reverse shoulder prosthesis. Anchoring screw in the LEFT humeral head. Inc reased thoracic kyphosis and spondylosis noted. IMPRESSION: 1. Pulmonary hyperinflation. No acute process.
== END 2023-08-28 14:30 | disposition home or self-care (01) ==
LOC: RAD 14:31
PROVIDERS: PCP Family Medicine; Visit Provider Family Medicine
DX: R06.00 Dyspnea, unspecified (principal); R06.02 Shortness of breath; I10 Essential (primary) hypertension
CPT/HCPCS: 71046; 80053; 83880; 84484; 85025; 85379

== ENCOUNTER 2023-08-31 11:39 | Outpatient (CLI) | payer MEDICARE, MEDICAID, SELFPAY ==
[2023-08-31] MEDS: iohexol 350 mg/mL 500 mL Btl (per mL) IV (12:20)
--- NOTE | 2023-08-31 12:30 | CTR_ITS ---
PROCEDURE INFORMATION: Exam: CTA Chest With Contrast Exam date and time: 08/31/2023 12:11 PM Age: 78 years old Clinical indication: Abnormal findings; Abnormal diagnostic tests; Elevated d-dimer; Shortness of breath; Additional info: Shortness of breath with elevated d-dimeressie approval #- [id number], exp 11/27/2023 TECHNIQUE: Imaging protocol: Computed tomographic angiography of the chest with contrast. Exam focused on the arteries. 3D rendering (Not supervised by radiologist): MIP and/or 3D reconstructed images were created by the technologist. Radiation optimization: All CT scans at this facility use at least one of these dose optimization techniques: automated exposure control; mA and/or kV adjustment per patient size (includes targeted exams where dose is matched to clinical indication); or iterative reconstruction. Contrast material: OMNI 350; Contrast volume: 95 ml; Contrast route: INTRAVENOUS (IV); REPORTING DATA: Count of CT and Cardiac NM exams in prior 12 months: This patient has received 2 known CTs and 0 known cardiac nuclear medicine studies in the 12 months prior to the current study. COMPARISON: CT angio chest PE protcl [id number] 07/10/2020 12:05 PM RADIATION DOSE METRICS: Total DLP (mGy-cm): 359.71 FINDINGS: Pulmonary arteries: No pulmonary embolus. Aorta: Unremarkable. No aortic aneurysm. No aortic dissection. Lungs: The ground-glass opacities present previously have significantly improved although they do mildly persist particularly in the lower lobes. Pleural spaces: Unremarkable. No pneumothorax. No pleural effusion. Heart: Unremarkable. No cardiomegaly. No pericardial effusion. Lymph nodes: Visible central lymph nodes are not pathologically enlarged. Liver: There are numerous rounded lesions within the liver, these are probably cysts but of higher density than fluid. The largest is 18 mm in size. Confirmation with either MRI or ultrasound is recommended. Bones/joints: Unremarkable. No acute fracture. Soft tissues: Unremarkable. CT/CT angio chest PE protcl [id number] IMPRESSION: 1. No acute intrathoracic pathology. Improved but mildly persistent ground-glass opacities. 2. Abdominal MR or ultrasound recommended to confirm the suspected benign etiology several hepatic space-occupying areas.
== END 2023-08-31 11:40 | disposition home or self-care (01) ==
LOC: RAD 11:39
PROVIDERS: PCP Family Medicine; Visit Provider Family Medicine
DX: R06.02 Shortness of breath (principal); R79.1 Abnormal coagulation profile
CPT/HCPCS: 71275; Q9967

== ENCOUNTER → 2023-09-05 10:19 | Outpatient (BNVA) | payer MEDICARE, MEDICAID, SELFPAY | PROVIDERS: PCP Family Medicine; Visit Provider Anesthesiology Pain Medicine | DX: M79.18 Myalgia, other site (principal); M47.816 Spondylosis without myelopathy or radiculopathy, lumbar region; M51.16 Intervertebral disc disorders with radiculopathy, lumbar region | CPT/HCPCS: 20553; 99214 ==

== ENCOUNTER 2023-09-14 07:42 | Outpatient (CLI) | payer MEDICARE, MEDICAID, SELFPAY ==
--- NOTE | 2023-09-14 08:15 | USR_ITS ---
PROCEDURE INFORMATION: Exam: US Abdomen, Limited; Right Upper Quadrant Exam date and time: 09/14/2023 8:13 AM Age: 78 years old Clinical indication: Abnormal CT. Liver lesions on CT TECHNIQUE: Imaging protocol: Real time ultrasound of the abdomen with image documentation. Limited exam focused on the right upper quadrant. COMPARISON: CT angio chest PE protcl [id number] 08/31/2023 12:11 PM FINDINGS: The visualized aorta is grossly normal in caliber. A simple hepatic cyst measures 0.9 x 0.8 x 1.2 cm. A simple hepatic cyst measures 1.8 x 1.4 x 1.5 cm. A simple hepatic cyst measures 1.4 cm. No biliary ductal dilatation. The common bile duct measures 0.2 cm. Cholelithiasis without significant gallbladder wall thickening. The sonographic Vilchis sign is negative. The right kidney measures 10.3 cm. No suspicious mass or hydronephrosis. The pancreas is partially obscurred by overlying bowel gas. The visualized pancreas is unremarkable. US/US liver [id number] IMPRESSION: 1. Simple hepatic cysts are seen. One of the indeterminate lesions on CT does not appear to have been identified, and a mass is not excluded. Recommend nonemergent MR abdomen hepatic protocol with and without contrast to better characterize. 2. Cholelithiasis without significant gallbladder wall thickening. The sonographic Vilchis sign is negative.
== END 2023-09-14 07:43 | disposition home or self-care (01) ==
LOC: RAD 07:42
PROVIDERS: PCP Family Medicine; Visit Provider Family Medicine
DX: K76.89 Other specified diseases of liver (principal); K80.20 Calculus of gallbladder without cholecystitis without obstruction
CPT/HCPCS: 76705

== ENCOUNTER 2023-09-21 09:24 | Outpatient (CLI) | payer MEDICARE, MEDICAID, SELFPAY ==
--- NOTE | 2023-09-21 | ECG_ITS ---
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 Interpretive Statements NAME OF STUDY: EXERCISE SESTAMIBI STRESS TEST INDICATION: [Chest Pain, Dyspnea, ] EXERCISE DATA: The patient was exercised by Anil protocol. Baseline heart rate was 61 eats per minute. Baseline blood pressure was 131/72 millimeters of mercury. Target heart rate was 122 beats per minute. Maximum heart rate achieved was 126 which was 103% of the target heart rate. Maximum blood pressure was 202/46 millimeters of mercury. Total exercise time was 6 minutes. Maximum METs achieved was 7. The reason for ending the test was maximal effort achieved. The patient complained of shortness of breath during the stress test, which then resolved at the end of the test. ELECTROCARDIOGRAM: BASELINE: Showed sinus rhythm, normal axis, no significant ST-T changes at the baseline noted. Right bundle branch seen [] EXERCISE: At the peak exercise level, [] No significant ST-T changes suggestive of ischemia noted. [] RECOVERY: During the recovery period, heart rate dropped appropriately. No significant ST-T changes in the recovery suggestive of ischemia noted. [] CONCLUSION: 1. Exercise capacity is fair 2. Heart rate response was appropriate 3. Blood pressure response was appropriate. 4. Symptoms not suggestive of ischemia. 5. Electrocardiogram portion of the stress test was not suggestive of ischemia. 6. Nuclear scan will be documented separately. Electronically Signed On 10-22-2023 11:08:30 DIRECTOR OF MAINTENANCE by Ludin Proctor M.D. [id number]
[2023-09-21 10:06] VITALS: BMI 25.7
--- NOTE | 2023-09-21 10:07 | NMCV_ITS ---
NM lulu perf SPECT r/s* [id number] Munir Salcedo Age: 78 Gender: M : 1945 Exam Date: 09/21/2023 10:07 Ordering Phys: Judson Koehler MD Technologist: NICHOLAS Ross Exam Location: [facility] Indications: SHORTNESS OF BREATH STRESS TEST Please see separate [facility] for full findings IMAGE PROTOCOL Rest/Stress 1 Exercise Day Radiopharmaceutical Dose (mCi) Administration Site Administered by Rest: Tc-99m 10.7 IV NICHOLAS Puente Sestamibi Stress:Tc-99m 32.3 IV NICHOLAS Puente Sestamiradha Rest: 21-Sep-2023 60 Discovery 630 Stress: 21-Sep-2023 15 Discovery 630 Radiopharmaceutical was injected at 86 % maximum heart rate. Images obtained in supine and prone position. SPECT RESULTS Technical Quality: Excellent Raw Data Analysis: Normal Image Corrections: No attenuation or motion correction applied Summed Stress Score: 0 Summed Rest Score: 2 Summed Difference Score: 0 PERFUSION FINDINGS SPECT images demonstrate homogeneous tracer distribution throughout the myocardium. FUNCTIONAL RESULTS (calculated via Gated SPECT) Stress Image LV EF (%): 73 Stress EDV (mL):80 TID: 0.86 Stress ESV (mL):22 FUNCTIONAL FINDINGS: There is normal left ventricular systolic function. IMPRESSIONS 1. Normal myocardial perfusion imaging with no evidence of ischemia 2. LV systolic function is normal Ludin Proctor MD (Electronically Signed) Final Date: 21 September 2023 12:59 S
[2023-09-21 11:50] VITALS: BP 152/80; PULSE 73
== END 2023-09-21 09:25 | disposition home or self-care (01) ==
PROVIDERS: PCP Family Medicine; Visit Provider Family Medicine
DX: R07.9 Chest pain, unspecified (principal); R06.00 Dyspnea, unspecified; R06.02 Shortness of breath
CPT/HCPCS: 36415; 78452; 93017; A9500

== ENCOUNTER → 2023-10-26 15:27 | Outpatient (BNVA) | payer MEDICARE, MEDICAID, SELFPAY | PROVIDERS: PCP Family Medicine; Visit Provider Family Medicine | DX: L98.9 Disorder of the skin and subcutaneous tissue, unspecified (principal) | CPT/HCPCS: 88305 ==

== ENCOUNTER → 2023-11-07 10:03 | Outpatient (BNVA) | payer MEDICARE, MEDICAID, SELFPAY | PROVIDERS: PCP Family Medicine; Visit Provider Anesthesiology Pain Medicine | DX: M47.816 Spondylosis without myelopathy or radiculopathy, lumbar region; M51.16 Intervertebral disc disorders with radiculopathy, lumbar region | CPT/HCPCS: 99214 ==

== ENCOUNTER 2023-11-29 08:17 | Outpatient (CLI) | payer MEDICARE, MEDICAID, SELFPAY ==
--- NOTE | 2023-11-29 08:45 | MR_ITS ---
WS: [id number] MRI OF THE ABDOMEN WITHOUT AND WITH GADOLINIUM ENHANCEMENT TECHNIQUE: Coronal T2 Fase BH, Axial T2 Fase BH, Axial T2 FS BH, Zxial 3D Alexander BH, Axial DWI BH, an d Axial 3D Dyn BH Post sequences. 5-minute delayed postgadolinium images. CLINICAL INFORMATION: liver lesion COMPARISON: Ultrasound 09/14/[address] 08/31/2023 FINDINGS: Five T2 hyperintense nonenhancing lesions are visualized in the liver the largest measuring 14 mm wit h imaging characteristics consistent with benign incidental hepatic cysts. No suspicious enhancing he patic lesions. Cholelithiasis. No gallbladder wall thickening or para cholecystic fluid. No hydronephrosis in either kidney. Tiny RIGHT renal cyst. No intrahepatic biliary ductal dilatation. No dilatation of the commo n bile duct. Fatty atrophy of the pancreas. Adrenal glands are normal. Normal caliber upper abdominal aorta. Impression: 1. Previously described small hepatic lesions correspond to benign incidental hepatic cysts on today 's study. No suspicious enhancing hepatic lesions. 2. Cholelithiasis. 3. No hydronephrosis in either kidney. 4. Small esophageal hiatal hernia. 5. No other suspicious findings.
[2023-11-29] MEDS: gadobenate dimeglumine 20 mL vial IV (09:22)
== END 2023-11-29 08:18 | disposition home or self-care (01) ==
LOC: RAD 08:18
PROVIDERS: PCP Family Medicine; Visit Provider Family Medicine
DX: K76.9 Liver disease, unspecified (principal); K80.20 Calculus of gallbladder without cholecystitis without obstruction; K44.9 Diaphragmatic hernia without obstruction or gangrene
CPT/HCPCS: 74183; A9577

== ENCOUNTER → 2024-02-05 10:37 | Outpatient (BNVA) | payer MEDICARE, MEDICAID, SELFPAY | PROVIDERS: PCP Family Medicine; Visit Provider Anesthesiology Pain Medicine | DX: M47.816 Spondylosis without myelopathy or radiculopathy, lumbar region; M51.16 Intervertebral disc disorders with radiculopathy, lumbar region; M43.16 Spondylolisthesis, lumbar region | CPT/HCPCS: 99214 ==

== ENCOUNTER → 2024-02-19 13:56 | Outpatient (BNVA) | payer MEDICARE, MEDICAID, SELFPAY | PROVIDERS: PCP Family Medicine; Visit Provider Anesthesiology Pain Medicine | DX: M79.18 Myalgia, other site (principal); M47.816 Spondylosis without myelopathy or radiculopathy, lumbar region; M51.16 Intervertebral disc disorders with radiculopathy, lumbar region | CPT/HCPCS: 20553; 99214; J1010; J3490 ==

== ENCOUNTER → 2024-06-06 07:25 | Outpatient (BNVA) | payer MEDICARE, MEDICAID, SELFPAY | PROVIDERS: PCP Family Medicine; Visit Provider Family Medicine | DX: I10 Essential (primary) hypertension (principal) | CPT/HCPCS: 80053; 80061; 85025 ==

== ENCOUNTER 2025-01-15 10:17 | Outpatient (CLI) | payer MEDICARE, SELFPAY ==
--- NOTE | 2025-01-15 10:34 | XR_ITS ---
WS: [id number] Left knee, 3 views, 01/15/2025 Clinical Data: left knee pain / fall Comparison: Left knee, 03/26/2015 Findings: No fractures or dislocations are seen. There is soft tissue swelling over the anterior patella. There is medial joint compartment narrowing. The patella shows anterior irregularity with mild posterior irregularity. There are small calcifications probably in the distal quadriceps tendon unchanged. XR/XR knee LT 3V* [id number] Impression: 1. Soft tissue swelling over anterior patella. 2. Mild osteoarthritis of the left knee with medial joint compartment narrowing and patellar irregularity.
== END 2025-01-15 10:18 | disposition home or self-care (01) ==
PROVIDERS: PCP Family Medicine; Visit Provider Family Medicine
DX: M17.12 Unilateral primary osteoarthritis, left knee (principal); M79.89 Other specified soft tissue disorders; R93.6 Abnormal findings on diagnostic imaging of limbs
CPT/HCPCS: 73562

== ENCOUNTER → 2025-06-03 09:44 | Outpatient (BNVA) | payer MEDICARE, SELFPAY | PROVIDERS: PCP Family Medicine; Visit Provider Family Medicine | DX: I10 Essential (primary) hypertension (principal); M19.071 Primary osteoarthritis, right ankle and foot; G47.33 Obstructive sleep apnea (adult) (pediatric); Z99.89 Dependence on other enabling machines and devices | CPT/HCPCS: 80053; 80061; 85025 ==

== ENCOUNTER → 2025-08-04 15:47 | Outpatient (BNVA) | payer MEDICARE, SELFPAY | PROVIDERS: PCP Family Medicine; Visit Provider Specialist | DX: M17.12 Unilateral primary osteoarthritis, left knee (principal) | CPT/HCPCS: 73560; 73565; 99214 ==

== ENCOUNTER 2025-08-18 10:20 | Outpatient (CLI) | payer MEDICARE, SELFPAY ==
--- NOTE | 2025-08-18 10:15 | MR_ITS ---
WS: [id number] MRI LEFT KNEE HISTORY: left knee pain, fall October 2024. Instability. COMPARISON: 05/13/2015, radiograph 08/04/2025 Anterior cruciate ligament: Intact. Posterior cruciate ligament: Intact. Medial collateral ligament: Intact. Posterior lateral corner structures: Intact. Medial menisci: Blunting and increased vertical signal involving the free edge posterior meniscus. Additional surface fraying of the posterior meniscus. Intermediate signal in the meniscal root. Lateral meniscus: Intact. Normal signal, size and shape. Extensor mechanism: Increased signal in the distal quadriceps tendon, most abnormal signal is in the distal rectus femoris tendon as it approaches and extends over the patella. There is no full-thickness tear. Patellar tendon is intact. Fluid and soft tissue: Small joint effusion. Small Villegas's cyst. Osseous and articular structures: Patellofemoral compartment: Moderate narrowing patellofemoral joint with loss of cartilage. Surface irregularity from osteophytes involving the anterior surface and the superior and inferior surfaces of the patella. Medial compartment: Mild narrowing of the medial compartment. Subchondral cyst measuring 7 x 10 mm involving the tibial plateau towards the tibial spine. There is a small tract of fluid extending along the meniscal root. Lateral compartment: Mild narrowing of the lateral compartment. Mild thinning and fissuring of the cartilage. 5 mm defect along the weightbearing surface of the mid lateral tibial plateau. MR/MR knee LT wo con* [id number] IMPRESSION: 1. Vertical signal involving the free edge posterior horn medial meniscus with blunting. Although only seen on one image suspicious for a radial tear. 2. Abnormal signal meniscal root posterior horn medial meniscus with a small t ract of fluid extending into a subchondral cyst of the tibial plateau. Small me niscal cyst versus subchondral cyst. 3. Moderate degenerative osteoarthritis involving the patellofemoral joint wit h patellar osteophytes. 4. Distal quadriceps tendinopathy. 5. Small joint effusion and small Villegas's cyst. 6. Mild narrowing the medial and lateral compartments.
== END 2025-08-18 10:21 | disposition home or self-care (01) ==
PROVIDERS: PCP Family Medicine; Visit Provider Specialist
DX: M17.12 Unilateral primary osteoarthritis, left knee (principal); R93.6 Abnormal findings on diagnostic imaging of limbs; M23.322 Other meniscus derangements, posterior horn of medial meniscus, left knee; M25.762 Osteophyte, left knee; M67.88 Other specified disorders of synovium and tendon, other site; M25.462 Effusion, left knee; M71.22 Synovial cyst of popliteal space [Baker], left knee
CPT/HCPCS: 73721

== ENCOUNTER → 2025-08-25 10:37 | Outpatient (BNVA) | payer MEDICARE, SELFPAY | PROVIDERS: PCP Family Medicine; Visit Provider Specialist | DX: M17.12 Unilateral primary osteoarthritis, left knee (principal); M76.892 Other specified enthesopathies of left lower limb, excluding foot | CPT/HCPCS: 20610; 99214 ==

== ENCOUNTER 2025-09-05 07:53 | Outpatient (RCR) | payer MEDICARE, SELFPAY | END 2025-09-17 23:59 | disposition home or self-care (01) | LOC: SPT 07:53 | PROVIDERS: Visit Provider Specialist | DX: M25.562 Pain in left knee (principal) | CPT/HCPCS: 97161 ==

== ENCOUNTER 2025-09-13 06:21 | Emergency (ER) | payer MEDICARE, SELFPAY ==
--- OUTSIDE RECORDS SUMMARY | 2024-07-13 03:00 | XMS_ITS ---
Author Organization [facility] Address [address] [place] [address] Care Team Providers Care Pad Assembler Name Role Phone Judson Koehler Primary Care Provider Unavailabl Tabby Ceja Unavailable Migration, Provider Unavailable Unavailable REASON FOR VISIT EMR-Danish Encounters Encounter Location Date Provider Diagnosis Migrated_Facility 0 0 07/13/2024 Provider Migration Plan Of Treatment No Information Progress Notes * Munir ROACHDOB:1945 (80 yo M)Acc No.[id number]:07/13/2024 Patient: Munir ANGEL :1945 A ge:79 Y S ex:Male Address:[address] [place] [address], [address] Subjective: * Chief Complaints: * E MR-Danish * * Date:
--- OUTSIDE RECORDS SUMMARY | 2024-07-14 03:00 | XMS_ITS ---
Author Organization [facility] Address [address] [place] [address] Care Team Providers Care Cattle Farmer Name Role Phone Judson Koehler Primary Care Provider Unavailabl Tabby Ceja Unavailable [phone] Migration, Provider Unavailable Unavailable REASON FOR VISIT EMR-Danish Encounters Encounter Location Date Provider Diagnosis Migrated_Facility 0 0 07/14/2024 Provider Migration Plan Of Treatment No Information Progress Notes * Munir ROACHDOB:1945 (80 yo M)Acc No.[id number]:07/14/2024 Patient: Munir ANGEL :1945 A ge:79 Y S ex:Male Address:[address] [place] [address], [id number] Subjective: * Chief Complaints: * E MR-Danish * * Date:
--- OUTSIDE RECORDS SUMMARY | 2024-10-01 05:00 | XMS_ITS ---
Author Organization [facility] Address [address] [place] [address] Care Team Providers Care Bag Making Machine Operator Name Role Phone Judson Koehler Primary Care Provider Tabby Selby Unavailable [phone] REASON FOR VISIT 2 month f/u Social History Tobacco Use: Social History Observation Description Date Details (start date - stop date) Never Smoker NA - NA Social History Tobacco Use: Social Info Question Answer Notes Tobacco Control (Standard) Tobacco use: Nonsmoker Additional Details Category Social Info Options Details Miscellaneous: Current Employment Status Working Drugs/Alcohol: Do you drink alcohol? Soci ally Encounters Encounter Location Date Provider Diagnosis [facility] [place] [address] [place] [address] 10/01/2024 Tabby Rausch Plan Of Treatment No Information History and Physical Notes * HPI (History of Present Illness) Category Sub-Category Detail Notes Category Not es Pain Details Pain Location : Duration Onset Frequency of Pain Severity of pain at its worst : Severity of pain at its best : Severity of average pain : Worsening factors Relieving factors Associated symptoms Severity of pain on medication : When did you last take your pain medicin e : Medication Details Do you have a lock b ox or safe place for medication away from minors and/or others? Yes Do you have any leftover pain medication building up at your house? No Do you understand that pain medication c an be addicting and can cause overdose? Yes Do you feel you can REDUCE the amount of medication you take today? No Opioid Assessment Tools Last Urine Drug Screen 10/06/23 Positive for BZO- Cup07/02/24 Confirmation consistent [place] Prescription Monitoring Program [place] PDMP reviewed , found to be consistent with treatment history, reviewed today COMM (Current Opioid Misuse Measure) : Treatment History Test undergone in the past 06/04/24 M RI L spine OZH Past medication you have taken 08/07/24 Hydrocodone 5/325 #30 Treatments you have had 07/16/24 R Lumba r paraspinal TPI Progress Notes * Munir ROACHDOB:1945 (80 yo M)Acc No.[id number]:10/01/2024 Progress Notes Patient: Munir Levin Provider: Vimal Rausch MD :1945 A ge:79 Y S ex:Male Date:10/01/2024 Address:[address] [place], [place] [id number] Pcp:Judson Koehler Subjective: * Chief Complaints: * 2 month f/u * HPI: P ain Details: Pain Location : . Severity of pain at its worst : . Severity of pain at its best : . Severity of pain on medication : . Severity of average pain : . When did you last take your pain medicine : . M edication Details: Do you have a lock box or safe place for medication away from minors and/or others? Y es. Do you have any leftover pain medication building up at your house? N o. Do you understand that pain medication can be addicting and can cause overdose? Y es. Do you feel you can REDUCE the amount of medication you take today? N o. O pioid Assessment Tools: COMM (Current Opioid Misuse Measure) : . Last Urine Drug Screen 1 10/06/23 Positive for BZO-Cup 1 Confirmation consistent. [place] Prescription Monitoring Program [place] reviewed?, found to be consistent with treatment history, reviewed today. T reatment History: Test undergone in the past MRI L spine OZH. Past medication you have taken 1 10/07/23 Hydrocodone 5/325 #30. Treatments you have had 1 R Lumbar paraspinal TPI.? * Medical History: Joint pain Arthritis HTN Deprerssion/anxiety Migraines * Surgical History: rotator cuff tear repair hernia repair R lumbar paraspinal TPI-MLP 07/16/24 * Hospitalization/Major Diagno stic Procedure: See Surgical Hx * Family History: Hypertension. * Social History: T obacco Use: T obacco Control (Standard) T obacco use: N onsmoker D rugs/Alcohol: D o you drink alcohol?: Socially. M iscellaneous: C urrent Employment Status: Working. Billing Information: * Procedure Codes: Care Plan Details* * Electronic signature of Lorna Rausch MD on 09/13/2025 at 06:33 AM [employer] MAINFRAME SYSTEMS PROGRAMMER Sign off status: Pending * Provider: Vimal Rausch MD Date: 0 10/01/2024 Generated for Lacho perez/Chet/Arnold on: 11/14/2024 06:33 AM [employer] MAINFRAME SYSTEMS PROGRAMMER
[2025-09-13 06:28] VITALS: BP 146/70; PULSE 65; RESP 18; TEMP 36.6; O2SAT 97; BMI 23.6
--- NOTE | 2025-09-13 06:30 | ED_ITS ---
HPI - General Adult General: Stated complaint: Cut L pointer finger Time Seen by Provider: 09/13/25 06:25 Source: patient Mode of arrival: ambulatory Limitations: no limitations History of Present Illness: 80-year-old male states that he had a ma larissa break overnight last night and lacerated the tip of his left index finger states that he has has a small portion shaved off the very tip but has not been able to get to stop bleeding. He denies any pain denies any other injuries he is not sure when his last tetanus was Related Data Previous Rx's ?Medication ?Instructions ?Recorded lidocaine HCl 4 % topical patch 30 patch topical DAILY PRN pain 02/13/24 (LidaFlex) #30 ea hydrocodone 5 mg-acetaminophen 325 1 tab PO Q8H PRN pa in 2 weeks #30 12/05/24 mg tablet tabs terazosin 2 mg capsule See Rx Instructions .Route 0 03/28/25 .COMPLEX #90 caps temazepam 15 mg capsule 15 mg PO BEDTIME PRN sleep # 90 caps 04/08/25 Covid Vaccine #1 ea 06/23/25 Flu Vaccine #1 ea 06/23/25 baclofen 10 mg tablet See Rx Instructions .Route 1 10/04/24 .COMPLEX #60 tabs fluoxetine 10 mg capsule See Rx Instructions .Route 1 10/20/24 .COMPLEX #90 caps naproxen 500 mg tablet See Rx Instructions .Route 1 10/26/24 .COMPLEX #60 tabs aspirin 81 mg tablet,delayed 81 mg PO DAILY #90 tabs 1 11/09/24 release (David Low Dose Aspirin) Allergies Allergy/AdvReac Type Severity Reaction Status Date / Time No Known Allergies Allergy Verified 08/25/25 07:07 [facility] PFSH: Medical History (Updated 09/13/25 @ 06:31 by Sylvester Navarro MD) BPH (benign prostatic hyperplasia) Osteoarthritis MUNDO on CPAP Hypertension Transaminitis Acute respiratory failure due to COVID-19 Rotator cuff arthropathy of right shoulder Hernia of testicle Rupture of left biceps tendon Heart murmur Surgical History H/O unilateral orchiectomy H/O hernia repair History of colon resection S/p reverse total shoulder arthroplasty Family History Denies family history of Diabetes CAD (coronary artery disease) Clotting disorder Dementia Hyperlipidemia Psychiatric illness Chronic kidney disease (CKD) Suicide Anesthesia complication Bleeding disorder Family history of premature coronary artery disease Lung disease Cancer Hypertension Stroke Social History Smoking and tobacco/nicotine status: never used tobacco/nicotine Alcohol intake: current Alcohol intake frequency: holidays/special occasions only Substance/Drug Use: never Marital status: Current occupational status: employed Current occupation: Part-time employment Physical Exam Const: COMMON NORMALS: no acute distress, patient oriented x3 and healthy appearing HENMT: COMMON NORMALS: normocephalic and atraumatic HEAD & SCALP: normocephalic and atraumatic Eye: COMMON NORMALS: Equal, round and reactive pupils present PUPIL: Yes Equal, round and reactive pupils present Neck/C-Spine: COMMON NORMALS: full ROM and supple Chest: COMMONS NORMALS: normal inspection of the chest Resp: COMMON NORMALS: normal respiratory effort Cardio: COMMON NORMALS: regular rate RATE: regular rate Extremity: NARRATIVE EXTREMITY EXAM: Small shave portion laceration to the very distal tip of the left pointer finger with some slight bleeding superficial nature Neuro: COMMON NORMALS: patient oriented x3, moves all extremities and no focal motor deficits Psych: COMMON NORMALS: mental status grossly normal, Normal thought process present and cooperative THOUGHT PROCESS: Normal thought process present Skin: COMMON NORMALS: no rashes or lesions noted and no wounds GENERAL SKIN EXAM: no rashes or lesions noted Procedures Laceration Laceration 1: Site: hand Side (If applicable): left Size (cm): 1 Description: other Depth: simple, single layer Pre-repair: wound explored and irrigated extensively Skin layer closed with: other (dermabond) [facility] - General Adult Medical Decision Making Patient presents here with a superficial laceration to the very distal tip of his left index finger did place a ring tourniquet and put Dermabond on to control the bleeding the bleeding did stop did update his tetanus he is stable for discharge follow-up PCP return if worsening No radiology studies performed this visit Discharge Plan Discharge Patient Disposition: Home Clinical Impression: Finger laceration Condition: Stable Prescriptions: No Action hydrocodone-acetaminophen 5-325 mg tablet 1 tab PO Q8H PRN (Reason: pain) 14 Days Qty: 30 0RF methylprednisolone acetate [Depo-Medrol] 80 mg/mL suspension 80 mg intra-articular ONCE Qty: 1 0RF lidocaine (PF) 20 mg/mL (2 %) solution 20 mg intra-articular ONCE Qty: 1 0RF methylprednisolone acetate [Depo-Medrol] 40 mg/mL suspension 40 mg intra-articular ONCE Qty: 1 0RF lidocaine (PF) 10 mg/mL (1 %) solution 10 mg intra-articular ONCE Qty: 1 0RF lidocaine (PF) 10 mg/mL (1 %) solution 10 mg SUBCUT ONCE Qty: 1 0RF LidaFlex 4 % adhesive patch,medicated 30 patch topical DAILY PRN (Reason: pain) Qty: 30 2RF terazosin 2 mg capsule See Rx Instructions .ROUTE .COMPLEX Qty: 90 11RF Dose Instruction: TAKE 1 CAPSULE BY MOUTH EVERY DAY Rx Instructions: TAKE 1 CAPSULE BY MOUTH EVERY DAY temazepam 15 mg capsule 15 mg PO BEDTIME PRN (Reason: sleep) Qty: 90 3RF (DME) Covid Vaccine See Rx Instructions .ROUTE .MEDSUPPLY Qty: 1 0RF Rx Instructions: As directed (DME) Flu Vaccine See Rx Instructions .ROUTE .MEDSUPPLY Qty: 1 0RF Rx Instructions: As directed. ok to give high dose for patients over 65 if they want it. baclofen 10 mg tablet See Rx Instructions .ROUTE .COMPLEX Qty: 60 2RF Dose Instruction: TAKE ONE TABLET THREE TIMES DAILY as needed for SPASMS Rx Instructions: TAKE ONE TABLET THREE TIMES DAILY as needed for SPASMS fluoxetine 10 mg capsule See Rx Instructions .ROUTE .COMPLEX Qty: 90 11RF Dose Instruction: take one capsule BY MOUTH EVERY DAY Rx Instructions: take one capsule BY MOUTH EVERY DAY naproxen 500 mg tablet See Rx Instructions .ROUTE .COMPLEX Qty: 60 1RF Dose Instruction: TAKE ONE TABLET BY MOUTH TWICE DAILY for 30 DAYS Rx Instructions: TAKE ONE TABLET BY MOUTH TWICE DAILY for 30 DAYS aspirin [David Low Dose Aspirin] 81 mg tablet,delayed release (DR/EC) 81 mg PO DAILY Qty: 90 11RF Discharge Orders: Discharge ED (Routine); Ordered 09/13/25 Ordered By: Sylvester Navarro Discharge Diet: Advance as tolerated Discharge Activity: Resume usual activity Patient Instructions: Laceration (ED) Print Language: Lithuanian Coding Level of Care Code ED Rip Saw Operator for Sher Paz
--- OUTSIDE RECORDS SUMMARY | 2025-09-13 06:33 | XMS_ITS | Patient Health Record ---
Author Organization [facility] Address [address] [place] [address] Care Team Providers Care Vessel Master Name Role Phone Judson Koehler Primary Care Provider Tabby Selby [phone] Allergies No Known Allergies Reason For Referral No Information Medications Medication SIG (Take, Route, Frequency, Duration) Notes Start Date End Date Status Terazosin HCl Active FLUoxetine HCl Activ e Aspirin 325 MG Tablet Delayed Release 1 tablet Orally Once a day Active Temazepam Active HYDROcodone-Acetaminophen 5-325 MG Tablet 1 tablet as needed Orally every 4-6 hours not to exceed 1 per day 08/07/2024 Active Social History Tobacco Use: Social History Observation Description Date Details (start date - stop date) Never Smoker NA - NA Social History Tobacco Use: Social Info Question Answer Notes Tobacco Control (Standard) Tobacco use: Nonsmoker Additional Details Category Social Info Options Details Miscellaneous: Current Employment Status Working Drugs/Alcohol: Do you drink alcohol? Soci ally Problems Problem Type SNOMED Code ICD Code Onset Dates Problem Status W/U Status Risk Notes Problem Chronic pain syndrome (057234038) Chronic pain syndrome (G89.4) Active confirmed Problem High risk drug monitoring status (573845723) USP (current) use of opiate analgesic (Z79.891) Active confirmed Problem Myalgia (05612375) Myalgia (M79.10) Active confirmed Plan Of Treatment No Information Insurance Providers Payer Name Payer Address Payer Phone Subscriber Number Group Number Insured Name Patient Relationship to Insured Coverage Start Date Coverage End Date BCBS Blanche [address] [place] [address] [id number] Munir Salcedo Self - patient is the insured [place] Medicaid [address] [place] [address] [id number] Munir Salcedo Self - patient is the insured [place] Medicare [address] [address] [place] [address] [id number] Munir Salcedo Self - patient is the insured Medical (General) History Medical History History ICD Code joint pain Arthritis HTN deprerssion/anxiety migraines Surgical History Surgery Date(Month/Year) rotator cuff tear repair hernia repair R lumbar paraspinal TPI-MLP 07/16/24 Hospitalization History Reason Date(Month/Year) See Surgical Hx
[2025-09-13] MEDS: tetanus-dipt-pertussis 0.5 mL SDV IM (06:38)
== END 2025-09-13 06:54 | disposition home or self-care (01) ==
PROVIDERS: Emergency Provider Emergency Medicine; PCP Family Medicine
DX: S61.211A Laceration without foreign body of left index finger without damage to nail, initial encounter (principal); Z79.82 Long term (current) use of aspirin; I10 Essential (primary) hypertension; X58.XXXA Exposure to other specified factors, initial encounter
CPT/HCPCS: 12001; 90471; 90715; 99283